=== PATIENT | female | born 1940 | race Two or more races ===

== ENCOUNTER → 2024-05-04 | Outpatient (CLI) | payer MEDICARE, BC, MEDICAID, SELFPAY ==
[2024-05-04 11:39] LABS: Basophils % (Auto) 1 % (0-2.5); Eosinophils # (Auto) 0.3 Thou/mm3 (0.0-0.5); Eosinophils % (Auto) 4 % (0-10); Hematocrit 31.1 % (36.0-46.0); Hemoglobin 10.4 g/dL (12.0-16.0); Immature Granulocytes % (Auto) 0 % (0-0); Immature Granulocytes Auto 0.03 Thou/mm3 (0.00-0.00); Lymphocytes # (Auto) 1.5 Thou/mm3 (1.0-4.8); Lymphocytes % (Auto) 18 % (10-50); Mean Corpuscular HGB Conc 33.4 g/dl (31.0-37.0); Mean Corpuscular Hemoglobin 32.5 pg (25.0-35.0); Mean Corpuscular Volume 97 fL (80-100); Monocytes # (Auto) 0.7 Thou/mm3 (0.0-0.8); Monocytes % (Auto) 9 % (0-12); Neutrophils # (Auto) 5.6 Thou/mm3 (1.8-7.7); Neutrophils % (Auto) 68 % (37-80); Nucleated Red Blood Cell % 0 /100 WBC (0); Platelet Count 220 Thou/mm3 (140-440); White Blood Count 8.1 Thou/mm3 (3.6-11.0)
[2024-05-04 11:58] LABS: Albumin, Serum 3.9 gm/dL (3.4-4.8); Anion Gap 9 (7-16); BUN/Creatinine Ratio 19 Ratio (12-20); Blood Urea Nitrogen 19 mg/dL (9-23); Calcium (Corrected) 9.1 mg/dL (8.5-10.1); Carbon Dioxide 27.3 mMol/L (20.0-31.0); Chloride 107 mMol/L (98-107); Glucose 105 mg/dL (74-106); Osmolality,Calculated 287 (275-295); Phosphorous 3.6 mg/dL (2.4-5.1); Potassium 4.1 mMol/L (3.4-5.1); Sodium 143 mMol/L (136-145); eGFR 55 See Note
== END | disposition home or self-care (01) ==
LOC: COPL 10:45
PROVIDERS: PCP Family Medicine; Referring Provider Internal Medicine; Visit Provider Internal Medicine
DX: N18.31 Chronic kidney disease, stage 3a (principal); D63.1 Anemia in chronic kidney disease; N17.0 Acute kidney failure with tubular necrosis; I50.9 Heart failure, unspecified; I25.10 Atherosclerotic heart disease of native coronary artery without angina pectoris; E87.6 Hypokalemia; E55.9 Vitamin D deficiency, unspecified
CPT/HCPCS: 36415; 80069; 85025

== ENCOUNTER → 2024-08-24 | Outpatient (CLI) | payer MEDICARE, BC, MEDICAID, SELFPAY ==
[2024-08-24 10:25] LABS: Basophils % (Auto) 1 % (0-2.5); Eosinophils # (Auto) 0.3 Thou/mm3 (0.0-0.5); Eosinophils % (Auto) 5 % (0-10); Hematocrit 32.8 % (36.0-46.0); Immature Granulocytes % (Auto) 0 % (0-0); Immature Granulocytes Auto 0.01 Thou/mm3 (0.00-0.00); Lymphocytes # (Auto) 1.4 Thou/mm3 (1.0-4.8); Lymphocytes % (Auto) 22 % (10-50); Mean Corpuscular HGB Conc 33.5 g/dl (31.0-37.0); Mean Corpuscular Hemoglobin 32.4 pg (25.0-35.0); Mean Corpuscular Volume 97 fL (80-100); Monocytes # (Auto) 0.5 Thou/mm3 (0.0-0.8); Monocytes % (Auto) 8 % (0-12); Neutrophils # (Auto) 4.1 Thou/mm3 (1.8-7.7); Neutrophils % (Auto) 64 % (37-80); Nucleated Red Blood Cell % 0 /100 WBC (0); Platelet Count 214 Thou/mm3 (140-440); RDW Standard Deviation 50.3 fL (36.4-46.3); Red Blood Count 3.39 Miln/mm3 (4.00-5.20); White Blood Count 6.4 Thou/mm3 (3.6-11.0)
[2024-08-24 10:36] LABS: Glucose Estimated Average 137 mg/dL (80-131); Hemoglobin A1C 6.4 % Hgb (4.8-6.0)
[2024-08-24 10:44] LABS: Alanine Aminotransferase 17 U/L (10-49); Albumin, Serum 3.9 gm/dL (3.4-4.8); Albumin/Globulin Ratio 1.5 (1.2-2.2); Alkaline Phosphatase 115 U/L (46-116); Anion Gap 7 (7-16); Aspartate Amino Transferase 22 U/L (0-34); BUN/Creatinine Ratio 22 Ratio (12-20); Bilirubin,Total 0.5 mg/dL (0.3-1.2); Blood Urea Nitrogen 22 mg/dL (9-23); Calcium 9.1 mg/dL (8.3-10.6); Calcium (Corrected) 9.2 mg/dL (8.5-10.1); Carbon Dioxide 25.6 mMol/L (20.0-31.0); Cardiac Risk Estimate 2.1 RATIO (3.7-5.6); Chloride 111 mMol/L (98-107); Cholesterol 115 mg/dL (132-200); Globulin 2.6 gm/dL (2.3-3.5); Glucose 115 mg/dL (74-106); HDL Cholesterol 54 mg/dL (40-60); LDL Cholesterol,Calculated 48 mg/dL (0-130); Osmolality,Calculated 291 (275-295); Phosphorous 3.5 mg/dL (2.4-5.1); Potassium 4.3 mMol/L (3.4-5.1); Sodium 144 mMol/L (136-145); Total Protein 6.5 gm/dL (5.7-8.2); Triglycerides 66 mg/dL (30-150); eGFR 55 See Note
[2024-08-24 10:47] LABS: Vitamin D 25 Hydroxy Total 58.6 ng/mL (7.3-40.2)
[2024-08-24 10:48] LABS: Ferritin 613 ng/mL (7.3-270.7); Iron 98 mcg/dL (50-170); Percent Iron Saturation 44 % (20-55); Total Iron Binding Capacity 220 mcg/dL (250-425); Unsaturated Iron Binding 122 (225-295)
== END | disposition home or self-care (01) ==
PROVIDERS: PCP Physician Assistant; Referring Provider Internal Medicine; Visit Provider Internal Medicine
DX: I13.0 Hypertensive heart and chronic kidney disease with heart failure and stage 1 through stage 4 chronic kidney disease, or unspecified chronic kidney disease (principal); N18.31 Chronic kidney disease, stage 3a; D63.1 Anemia in chronic kidney disease; I50.9 Heart failure, unspecified; N17.0 Acute kidney failure with tubular necrosis; I25.10 Atherosclerotic heart disease of native coronary artery without angina pectoris; E87.6 Hypokalemia; E55.9 Vitamin D deficiency, unspecified; E78.5 Hyperlipidemia, unspecified; D50.9 Iron deficiency anemia, unspecified; R73.01 Impaired fasting glucose
CPT/HCPCS: 36415; 80053; 80061; 82306; 82728; 83036; 83540; 83550; 84100; 85025

== ENCOUNTER → 2024-11-29 | Outpatient (CLI) | payer MEDICARE, BC, MEDICAID, SELFPAY ==
[2024-11-29 10:51] LABS: Basophils # (Auto) 0.1 Thou/mm3 (0.0-0.2); Basophils % (Auto) 1 % (0-2.5); Eosinophils # (Auto) 0.3 Thou/mm3 (0.0-0.5); Eosinophils % (Auto) 4 % (0-10); Hematocrit 31.3 % (36.0-46.0); Hemoglobin 10.2 g/dL (12.0-16.0); Immature Granulocytes Auto 0.01 Thou/mm3 (0.00-0.00); Lymphocytes # (Auto) 1.2 Thou/mm3 (1.0-4.8); Lymphocytes % (Auto) 21 % (10-50); Mean Corpuscular HGB Conc 32.6 g/dl (31.0-37.0); Mean Corpuscular Hemoglobin 32.4 pg (25.0-35.0); Mean Corpuscular Volume 99 fL (80-100); Monocytes # (Auto) 0.4 Thou/mm3 (0.0-0.8); Monocytes % (Auto) 8 % (0-12); Neutrophils # (Auto) 3.9 Thou/mm3 (1.8-7.7); Neutrophils % (Auto) 66 % (37-80); Nucleated Red Blood Cell # 0.00 Thou/mm3 (0.00-0.00); Nucleated Red Blood Cell % 0 /100 WBC (0); Platelet Count 187 Thou/mm3 (140-440); RDW Standard Deviation 49.9 fL (36.4-46.3); Red Blood Count 3.15 Miln/mm3 (4.00-5.20); White Blood Count 5.9 Thou/mm3 (3.6-11.0)
[2024-11-29 11:15] LABS: Alanine Aminotransferase 15 U/L (10-49); Albumin, Serum 3.9 gm/dL (3.4-4.8); Albumin/Globulin Ratio 1.6 (1.2-2.2); Alkaline Phosphatase 102 U/L (46-116); Anion Gap 10 (7-16); Aspartate Amino Transferase 21 U/L (0-34); BUN/Creatinine Ratio 18 Ratio (12-20); Bilirubin,Direct 0.2 mg/dL (0.0-0.3); Bilirubin,Total 0.6 mg/dL (0.3-1.2); Blood Urea Nitrogen 18 mg/dL (9-23); Calcium 9.0 mg/dL (8.3-10.6); Calcium (Corrected) 9.1 mg/dL (8.5-10.1); Carbon Dioxide 28.5 mMol/L (20.0-31.0); Cardiac Risk Estimate 2.0 RATIO (3.7-5.6); Chloride 110 mMol/L (98-107); Cholesterol 100 mg/dL (132-200); Creatinine (Component) 1.0 mg/dL (0.6-1.3); Globulin 2.4 gm/dL (2.3-3.5); Glucose 105 mg/dL (74-106); HDL Cholesterol 50 mg/dL (40-60); LDL Cholesterol,Calculated 37 mg/dL (0-130); Osmolality,Calculated 296 (275-295); Phosphorous 3.4 mg/dL (2.4-5.1); Potassium 3.8 mMol/L (3.4-5.1); Sodium 148 mMol/L (136-145); Total Protein 6.3 gm/dL (5.7-8.2); Triglycerides 67 mg/dL (30-150); eGFR 55 See Note
[2024-11-29 11:19] LABS: Glucose Estimated Average 120 mg/dL (80-131); Hemoglobin A1C 5.8 % Hgb (4.8-6.0)
== END | disposition home or self-care (01) ==
LOC: COPL 09:18
PROVIDERS: PCP Family Medicine; Referring Provider Internal Medicine Cardiovascular Disease; Visit Provider Internal Medicine
DX: E11.22 Type 2 diabetes mellitus with diabetic chronic kidney disease (principal); N18.31 Chronic kidney disease, stage 3a; D63.1 Anemia in chronic kidney disease; I50.9 Heart failure, unspecified; I25.10 Atherosclerotic heart disease of native coronary artery without angina pectoris; E87.6 Hypokalemia; E55.9 Vitamin D deficiency, unspecified; I25.118 Atherosclerotic heart disease of native coronary artery with other forms of angina pectoris; E78.00 Pure hypercholesterolemia, unspecified; E78.2 Mixed hyperlipidemia; R79.9 Abnormal finding of blood chemistry, unspecified; R53.82 Chronic fatigue, unspecified
CPT/HCPCS: 36415; 80053; 80061; 80076; 82248; 83036; 84100; 85025

== ENCOUNTER 2024-12-25 13:18 | Inpatient (IN) | payer MEDICARE, BC, MEDICAID, SELFPAY ==
[2024-12-25] VITALS (8 sets, daily range): BP systolic 149–174; BP diastolic 63–85; PULSE 68–105; RESP 14–18; TEMP 36.4–36.9; O2SAT 97–100; BMI 27.1
--- NOTE | 2024-12-25 13:43 | EKG_ITS ---
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1940 Requested By: Marko Riley Order Number: [id number] Reading MD: Marko Riley Measurements Intervals [place] Rate: 93 P: 101 KS: 182 QRS: 25 QRSD: 119 T: 177 QT: 370 QTc: 461 Interpretive Statements SINUS RHYTHM WITH OCCASIONAL VENTRICULAR PREMATURE COMPLEXES ANTEROSEPTAL MYOCARDIAL INFARCTION , PROBABLY OLD [40+ ms Q WAVE IN V1-V4] MODERATE T-WAVE ABNORMALITY, CONSIDER LATERAL ISCHEMIA [-0.1+ mV T-WAVE IN I/aVL/V5/V6] Compared to ECG 08/12/2017 09:55:06 Myocardial infarct finding now present T-wave abnormality now present Possible ischemia now present Atrial fibrillation no longer present Aberrant conduction of supraventricular beat(s) no longer present Left bundle-branch block no longer present /store/S0/[id number].pdf
--- NOTE | 2024-12-25 13:43 | XR_ITS ---
Examination: CT brain head without contrast. 2-D sagittal coronal reconstructions Date and time of exam:December 25, 2024, 1431 hrs. Indications: Generalized dizziness today CTDI: vol (mGy):48.6. DLP: (mGycm):930 Technique: Multiple CT axial sections of the brain have been obtained, 5 mm slice thickness. Contrast has not been administered. 2-D sagittal, coronal reconstructions have been obtained Low dose protocols were performed. One or more of the following dose reduction techniques were used; automated exposure control, adjustment of the mA and/or KV according to patient size, use of iterative reconstruction technique. Findings: No significant ventricular enlargement. Frontal atrophy Intra-axial or extra-axial hemorrhage density is not seen. No mass effect or midline shift Basal cisterns are not remarkable. Fourth ventricle is midline. Cranial vault intact. Impression: Negative for acute hemorrhage, mass effect or midline shift Advise clinical correlation and follow-up accordingly
--- NOTE | 2024-12-25 13:43 | XR_ITS ---
Examination: AP chest single view Technique: AP portable semiupright chest single view Date and time: December 25, 2024, 1355 hrs. Comparison April 10, 2018 Indications: Coughing beginning 3 days ago. Findings: Normal heart size. Mild prominence pulmonary vasculature. Cardiac leads satisfactory position. No lobar pneumonia or pulmonary edema. Impression: No lobar pneumonia or pulmonary edema.
--- NOTE | 2024-12-25 14:00 | PD.EDDIZZY ---
ED Dizzyness RME/HPI General Chief Complaint: Dizziness Stated Complaint: DIZZINESS Time Seen by Provider: 12/25/24 13:35 Arrival date/time: 12/25/24 13:18 Limitations: no limitations RME / HPI RME / HPI Narrative: 84 year old female with history of CHF, hypertension, s/p pacemaker placement, diabetes presented to the ED BIBA from home for evaluation of dizziness today. States symptoms began while getting ready and lasting ~ 10 seconds. Followed by malaise. Denies any fevers, chills, chest pain, cough, shortness of breath, abdominal pain, nausea, vomiting, or urinary symptoms. Denies any changes to memory, focal weakness, or change in speech. Related Data Home Medications ?Medication ?Instructions ?Recorded ?Confirmed aspirin 81 mg tablet,delayed 81 mg PO QDAY 04/10/18 12/22/23 release (Aspir-Low) atorvastatin 80 mg tablet 80 mg PO QDAY 04/10/18 12/22/23 carvedilol 6.25 mg tablet 6.25 mg PO BID 04/10/18 12/22/23 glipizide 2.5 mg tablet, extended 2.5 mg PO QDAY 04/10/18 12/22/23 release 24 hr sacubitril 24 mg-valsartan 26 mg 1 tab PO BID 04/10/18 12/22/23 tablet (Entresto) ticagrelor 90 mg tablet (Brilinta) 90 mg PO BID 04/10/18 12/22/23 Allergies Allergy/AdvReac Type Severity Reaction Status Date / Time No Known Allergies Allergy Verified 12/22/23 09:48 Review of Systems Review of Systems Systems Reviewed: All systems reviewed, normal except as documented Past Medical History Past Medical History CARDIAC: Positive Cardiac Disorders (pacemaker left upper chest), Myocardial Infarction (04/2018), Atrial Fibrillation (hx), Congestive Heart Failure, Congenital Heart Disease and Hypertension ENT: Positive Cataracts ENDOCRINE: Positive Endocrine Disorders and Diabetes Mellitus Type 2 HEMATOLOGIC: Positive Blood Disorders (LOW MAGNESIUM) Surgical History SURGICAL: Positive Cardiac Surgery and Pacemaker Social History SMOKING STATUS: Never smoker ED Exam General Limitations: Present no limitations General appearance: Present alert, in no apparent distress and other (appears ill, making poor eye contact) Head Head exam: Present atraumatic Eye Eye exam: Present normal appearance, PERRL and EOMI; Absent nystagmus ENT ENT exam: Present normal exam, normal oropharynx and mucous membranes moist Neck Neck exam: Present normal inspection, full ROM, trachea midline and other (Carotids +1 ) Chest Chest inspection: Present normal inspection and symmetric chest wall rise Respiratory Respiratory exam: Present normal lung sounds bilaterally Cardiovascular Cardiovascular exam: Present regular rate, normal rhythm and normal heart sounds Abdominal Exam Abdominal exam: Present soft and normal bowel sounds Extremities Exam Extremities exam: Present normal inspection and full ROM Back Exam Back exam: Present normal inspection and full ROM Neurological Exam Neurological exam: Present alert, oriented X3 and CN II-XII intact Psychiatric Psychiatric exam: Present normal affect and normal mood Skin Skin exam: Present warm, dry, intact and normal color Course Quality Measures none Orders Category Date Time Status Bedside COVID-19 Antigen Test NOW Care 12/25/24 18:08 Active COVID-19 Screening Questionnaire NOW Care 12/25/24 18:04 Active Thermal Surfacing Machine Operator NOW Care 12/25/24 13:43 Active Continuous Pulse Oximetry NOW Care 12/25/24 13:43 Completed Decision to Admit X1 Care 12/25/24 18:04 Completed EKG (ED ONLY) *Do not use* NOW Care 12/25/24 13:43 Completed Insert IV NOW Care 12/25/24 13:43 Active Consult to Cardiology Stat Cons 12/25/24 18:[address] head/brain wo con Stat Exams 12/25/24 13:43 Completed EKG (ED Only) Stat Exams 12/25/24 13:43 Draft XR chest 1V portable Stat Exams 12/25/24 13:43 Completed CBC Stat Lab 12/25/24 14:18 Completed Comprehensive Metabolic Panel Stat Lab 12/25/24 14:18 Completed Partial Thromboplastin Time Stat Lab 12/25/24 14:18 Completed Prothrombin Time with INR Stat Lab 12/25/24 14:18 Completed Troponin I Stat Lab 12/25/24 14:18 Completed Troponin I Stat Lab 12/25/24 16:38 Completed Urinalysis Stat Lab 12/25/24 14:58 Completed Aspirin Med 12/25/24 17:35 Discontinued 325 mg PO X1 ONE Meclizine HCl [Antivert] Med 12/25/24 13:43 Discontinued 25 mg PO X1 ONE Sodium Chloride 0.9% 1000 ml [Ns] 1,000 ml Med 12/25/24 13:43 Discontinued IV 999 mls/hr Vital Signs Vital signs: Vital Signs Temperature 98.5 F 12/25/24 13:27 Pulse Rate 100 12/25/24 13:27 Respiratory Rate 18 12/25/24 13:27 Blood Pressure 149/70 H 12/25/24 13:27 Pulse Oximetry (%) 98 12/25/24 13:27 Oxygen Delivery Method Room Air 12/25/24 13:27 Pulse ox is 98% on room air which is adequate. Dizziness MDM Narrative MDM Narrative:: Carlota Israel am scribing for and in the presence of Dr. Nelson. Patient data External records reviewed:: [facility] previous records (I reviewed ED visit on 04/10/2018 ) and EMS form Clinical information provided by:: patient and EMS Social determinants that could affect healthcare access:: none Patient has the following chronic illnesses:: CHF, hypertension, s/p pacemaker placement, diabetes How is presenting disease/condition affected by chronic disease/condition?: exacerbated by Evaluation data The following diagnostics were reviewed and interpreted by me:: lab results, radiology exam(s) and EKG tracing(s) (12/25/2024 @ 13:54. Sinus rhythm with occasional PVCs, rate 93, changes to anterior septal leads, no STEMI. ) Lab and/or radiology exams considered but not ordered:: None Interpretation Summary: Ordering Physician: Marko Nelson MD Date of Service: 12/25/24 Procedure(s): XR chest 1V portable Accession Number(s): [id number] cc: Marok Nelson MD; Patrick Sr MD~ Examination: AP chest single view Technique: AP portable semiupright chest single view Date and time: December 25, 2024, 1355 hrs. Comparison April 10, 2018 Indications: Coughing beginning 3 days ago. Findings: Normal heart size. Mild prominence pulmonary vasculature. Cardiac leads satisfactory position. No lobar pneumonia or pulmonary edema. Impression: No lobar pneumonia or pulmonary edema. Dictated By: Patrick Sr MD Signed By: <Electronically signed by Patrick Sr MD in OV> 12/25/24 1405 Ordering Physician: Marko Nelson MD Date of Service: 12/25/24 Procedure(s): CT head/brain wo con Accession Number(s): [id number] cc: Marko Nelson MD; Patrick Sr MD; Ryan Martinez MD~ Examination: CT brain head without contrast. 2-D sagittal coronal reconstructions Date and time of exam:December 25, 2024, 1431 hrs. Indications: Generalized dizziness today CTDI: vol (mGy):48.6. DLP: (mGycm):930 Technique: Multiple CT axial sections of the brain have been obtained, 5 mm slice thickness. Contrast has not been administered. 2-D sagittal, coronal reconstructions have been obtained Low dose protocols were performed. One or more of the following dose reduction techniques were used; automated exposure control, adjustment of the mA and/or KV according to patient size, use of iterative reconstruction technique. Findings: No significant ventricular enlargement. Frontal atrophy Intra-axial or extra-axial hemorrhage density is not seen. No mass effect or midline shift Basal cisterns are not remarkable. Fourth ventricle is midline. Cranial vault intact. Impression: Negative for acute hemorrhage, mass effect or midline shift Advise clinical correlation and follow-up accordingly Dictated By: Patrick Sr MD Signed By: <Electronically signed by Patrick Sr MD in OV> 12/25/24 1542 Medications / Prescriptions Medications or Prescriptions considered but not ordered:: None Medication administrations:: Medication Administration History Discontinued Medications Aspirin (Aspirin 325 Mg Tablet) 325 mg PO X1 ONE Stop: 12/25/24 17:36 Last Admin: 12/25/24 17:52 Dose: 325 mg Documented By: DB Sodium Chloride (Ns) 1,000 mls @ 999 mls/hr IV .Q1H1M ONE Stop: 12/25/24 14:43 Last Infusion: 12/25/24 15:14 Dose: Infused Documented By: Admin: 12/25/24 14:13 Dose: 999 mls/hr Documented By: EF Meclizine HCl (Meclizine Hcl 25 Mg Tablet) 25 mg PO X1 ONE Stop: 12/25/24 13:44 Last Admin: 12/25/24 14:13 Dose: 25 mg Documented By: EF See above Consultations Consultation(s) initiated? (list below): Yes Consultation #1 (Physician, Specialty, Details): I spoke with sales property manager Dr. Carrillo. Discussed patients PMHx, HPI, ED course, exam findings, labs, and radiology results. He agrees to consult. Time: 18:00 Consultation #2 (Physician, Specialty, Details): I spoke with residents working with hospitalis Dr. Segal. Discussed patients PMHx, HPI, ED course, exam findings, labs, and radiology results. The hospitalist agree to accept the patient for admission. Time: 18:03 Diagnosis Dizziness Differential Diagnosis: adverse reaction to drug, benign paroxysmal positional vertigo, orthostatic hypotension, cerebrovascular accident and transient cerebral ischemia Most likely diagnosis given after review of the tests above:: Elevated troponin Subendocardial mi Admission Indicated Admission indicated?: indicated Admission Request Was there a request for admission?: Yes Admission Attestation Admission request attestation: Discussed case with [] from Hospitalist service regarding admission. Discussed patients ED course, exam findings, labs, and radiology results. The Hospitalist [agrees,declines] to accept the patient for admission. Disposition Plan Disposition Plan: Admit Critical Care Time Critical Care Time Critical Care Time: Yes Total Critical Care Time (min.): 45 Attestation: The high probability of sudden, clinically significant deterioration in the patient's condition required the highest level of my preparedness to intervene urgently. The services I provided to this patient were to treat and/or prevent clinically significant deterioration. Services included the following: chart data review, reviewing nursing notes and/or old charts, documentation time, contact center consultant collaboration regarding findings and treatment options, medication orders and management, direct patient care, vital sign assessments and ordering, interpreting and reviewing diagnostic studies and lab tests. Aggregate critical care time includes only time during which I was engaged in work directly related to the patient's care, as described above, whether at bedside or elsewhere in the Emergency Department. It did not include time spent performing other reported procedures or the services of residents, students, nurses or physician assistants. Discharge Plan Plan Patient Disposition: Admit Acute Care w/in Hospital Prescriptions/Referrals Prescriptions/Med Rec: No Action atorvastatin 80 mg Tablet 80 mg PO QDAY carvedilol 6.25 mg Tablet 6.25 mg PO BID aspirin [Aspir-Low] 81 mg Tablet,Delayed Release (Dr/Ec) 81 mg PO QDAY glipizide 2.5 mg Tablet Extended Release 24 Hr 2.5 mg PO QDAY Brilinta 90 mg Tablet 90 mg PO BID Entresto 24-26 mg Tablet 1 tab PO BID Referrals: Ryan Martinez MD [Primary Care Provider] - In 1 week Problem List Clinical Impression: Acute MD, subendocardial Patient/Caregiver Discharge Instructions Print Language: Kiswahili Stand Alone Forms: Nadine Award Info., Patient Portal Info Letter
[2024-12-25] MEDS: SODIUM CHLORIDE 0.9% 1000 ML 1,000 ML 999 ML IV (14:13)
[2024-12-25] MEDS: MECLIZINE HCL 25 MG TABLET PO (14:13)
[2024-12-25 14:39] LABS: Basophils # (Auto) 0.0 Thou/mm3 (0.0-0.2); Basophils % (Auto) 1 % (0-2.5); Eosinophils # (Auto) 0.2 Thou/mm3 (0.0-0.5); Eosinophils % (Auto) 2 % (0-10); Hematocrit 33.6 % (36.0-46.0); Hemoglobin 11.1 g/dL (12.0-16.0); Immature Granulocytes Auto 0.02 Thou/mm3 (0.00-0.00); Lymphocytes # (Auto) 1.2 Thou/mm3 (1.0-4.8); Lymphocytes % (Auto) 13 % (10-50); Mean Corpuscular HGB Conc 33.0 g/dl (31.0-37.0); Mean Corpuscular Hemoglobin 32.4 pg (25.0-35.0); Mean Corpuscular Volume 98 fL (80-100); Monocytes # (Auto) 0.5 Thou/mm3 (0.0-0.8); Monocytes % (Auto) 5 % (0-12); Neutrophils # (Auto) 6.9 Thou/mm3 (1.8-7.7); Neutrophils % (Auto) 79 % (37-80); Nucleated Red Blood Cell # 0.00 Thou/mm3 (0.00-0.00); Nucleated Red Blood Cell % 0 /100 WBC (0); Platelet Count 205 Thou/mm3 (140-440); RDW Standard Deviation 50.9 fL (36.4-46.3); Red Blood Count 3.43 Miln/mm3 (4.00-5.20); White Blood Count 8.8 Thou/mm3 (3.6-11.0)
[2024-12-25 14:51] LABS: INR 1.0 (0.9-1.3); Partial Thromboplastin Time 22.2 Seconds (22.0-36.0); Prothrombin Time 11.1 Seconds (9.0-12.2)
[2024-12-25 15:03] LABS: Collection Type, Urine Clean Catch
[2024-12-25 15:12] LABS: Alanine Aminotransferase 10 U/L (10-49); Albumin, Serum 4.1 gm/dL (3.4-4.8); Albumin/Globulin Ratio 1.7 (1.2-2.2); Alkaline Phosphatase 112 U/L (46-116); Anion Gap 10 (7-16); Aspartate Amino Transferase 21 U/L (0-34); BUN/Creatinine Ratio 15 Ratio (12-20); Bilirubin,Total 0.6 mg/dL (0.3-1.2); Blood Urea Nitrogen 15 mg/dL (9-23); Calcium 8.7 mg/dL (8.3-10.6); Calcium (Corrected) 8.7 mg/dL (8.5-10.1); Carbon Dioxide 23.4 mMol/L (20.0-31.0); Chloride 107 mMol/L (98-107); Creatinine (Component) 1.0 mg/dL (0.6-1.3); Estimated Creatinine Clearance 37.0 mL/min (>60); Globulin 2.4 gm/dL (2.3-3.5); Glucose 190 mg/dL (74-106); Osmolality,Calculated 285 (275-295); Potassium 3.6 mMol/L (3.4-5.1); Sodium 140 mMol/L (136-145); Total Protein 6.5 gm/dL (5.7-8.2); eGFR 55 See Note
[2024-12-25 15:22] LABS: Troponin I 0.114 ng/mL (0.0-0.045)
[2024-12-25 15:28] LABS: Bilirubin,Urine Negative (Negative); Blood,Urine 1+ (Negative); Clarity,Urine Turbid (Clear/Hazy); Color,Urine Lt-Yellow (Lt Yel-Yel); Glucose, Urine Negative (Negative); Ketones,Urine Negative (Negative); Leukocyte Esterase,Urine Positive (Negative); Nitrite,Urine Positive (Negative); PH,Urine 6.0 (5.0-7.0); Protein,Urine Negative (Neg - Trace); RBC,Urine 16 /hpf (0-3); Specific Gravity,Urine 1.010 (1.001-1.035); Squamous Epithelial Cell,Urine 3 /hpf (0-5); Urobilinogen,Urine Negative mg/dL (0.0-1.0); WBC,Urine 603 /hpf (0-5)
[2024-12-25 17:22] LABS: Troponin I 0.272 ng/mL (0.0-0.045)
--- NOTE | 2024-12-25 18:14 | PD.RESEVENT ---
Documentation for date of: 12/25/24 Event Note Event Note: Patient is 84 years old female with past medical history of A-fib, CAD, CHF s/p pacemaker, DM type II, presented to the ED complaining of dizziness. EKG showed ST segment changes concerning for ischemia. Her troponin was elevated at 0.272. ED physician consulted cardiology who recommended admission for further evaluation. Call was received after hours and will be signed out to scene shifter team for admission. Plan of care discussed with attending Dr. Segal. Gibran Grey MD, PGY 3. Disclaimer: This note was dictated by speech recognition. Minor errors in trucking contractor may be present due to voice recognition software.
--- NOTE | 2024-12-25 18:37 | PC.CC ---
Patient is a 84 year-old female who presents to the hospital for dizziness. SUPERVISOR CYTOLOGYKathryn made [id number] contact with patient. ASW introduced self, role, and reason for visit.?Patient appeared alert and oriented to self, location, and situation. SUPERVISOR CYTOLOGY discussed limits of confidentialty. At bedside was patient's daughter, Moni Cai whom patient provided verbal consent to remain in the room during assessment.?Patient was pleasant and engaged in initial assessment. Patient reports that currently she is living with her son Duglas and his , Renetta Hammond. However, upon discharge she will be going to stay with her daughter, Moni. Patient's next of kin is her son, Duglas Hammond. At home patient is able to ambulate independently and complete her own ADLs. Patient does not require any DME. Patient receives primary care with Ryan Martinez and uses [facility] on [address]. Upon discharge patient will be going to stay with her daughter, Moni. rehab services aide to follow up with any discharge needs.
--- NOTE | 2024-12-25 19:22 | EKG_ITS ---
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
[2024-12-25 19:46] LABS: Magnesium 1.4 mg/dL (1.6-2.6); Phosphorous 2.8 mg/dL (2.4-5.1)
[2024-12-25 21:05] LABS: Troponin I 0.204 ng/mL (0.0-0.045)
--- NOTE | 2024-12-25 21:11 | ESHP_ITS ---
Documentation for date of: 12/25/24 [facility] History of Present Illness History of present illness: 84-year-old female with a history of CHF, atrial fibrillation (s/p pacemaker), myocardial infarction (2018), hypertension, and type 2 diabetes mellitus presented to the ED from home after an episode of lightheadedness and near- syncope. Symptoms began around 11:45 AM while she was returning from breakfast with her niece. She described the episode as a sensation of dizziness and feeling like she would faint, accompanied by an unusual internal cracking sound she perceived in her chest. She did not lose consciousness, fall, or hit her head. She denied chest pain, palpitations, focal neurologic deficits, nausea, vomiting, or shortness of breath. She reports similar but less intense symptoms occurring a few years ago that resolved on their own. She ambulated independently prior to this event, with stable but reduced exertional capacity due to CHF. She has mild hip pain with initial ambulation, s/p left hip ORIF over a year ago, but no recent trauma or worsening pain. Appetite is good, no recent medication changes, and she denies fevers, chills, urinary, or GI complaints. She was hemodynamically stable upon arrival to the ED. ED Course: EKG: Sinus rhythm with occasional PVCs, T-wave abnormalities concerning for lateral ischemia, and old anteroseptal KS Troponin 0.11 --> 0.272 --> 0.[address]: Negative for acute process Chest X-ray: No pulmonary edema or consolidation UA: +LE, +blood, WBCs 603, RBCs 16, no bacteria, positive nitrites Given: * Aspirin 325 mg * Meclizine 25 mg * 1L NS IV fluid bolus (now discontinued) ROS: * Constitutional: No fever, chills, or weight loss. Mild fatigue. * Cardiovascular: Denies chest pain or palpitations. * Pulmonary: No shortness of breath, cough, or wheezing. * GI: No nausea, vomiting, abdominal pain, diarrhea, or constipation. * : No dysuria, urgency, or frequency. * Neuro: Denies weakness, numbness, speech changes, or visual disturbances. * MSK: Mild left hip pain with movement, chronic since ORIF. * Skin: No rashes, wounds, or breakdown. * Psych: No anxiety or mood changes. PMH: CHF, A-fib (s/p pacemaker), KS (2018), HTN, DM2, left hip fracture s/p ORIF (>1 year ago) Allergies: NKDA Medications: To be reconciled on admission (likely on aspirin, antihypertensives, antidiabetics; unclear if on anticoagulation) Family Hx: Non-contributory Social Hx: Lives at home with family. Never smoker. Independent with ADLs. Surgical Hx: Pacemaker (L chest), ORIF L hip Exam Vital Signs Temp Pulse Resp BP Pulse Ox O2 Del Method 98.2 F 77 16 174/82 H 100 Room Air 12/25/24 19:23 12/25/24 19:23 12/25/24 19:23 12/25/24 19:23 12/25/24 19:23 12/25/24 19:23 Narrative Exam General: Elderly female, alert and pleasant, no acute distress. HEENT: PERRLA, moist mucous membranes, no lesions. Neck: No JVD or carotid bruits. Cardiac: Regular rhythm, normal S1/S2, occasional PVCs heard, no murmurs. Lungs: Clear to auscultation bilaterally. Abdomen: Soft, non-tender, no masses or organomegaly. Extremities: No edema. L hip nontender to palpation; mild pain with initial movement. Neuro: AOx3, CN II?XII intact, no focal deficits. Skin: Intact, no lesions or ecchymosis. Psych: Cooperative, appropriate affect. Results: Labs 12/25/24 14:18 12/25/24 14:18 Labs: Short CBC 12/25/24 Range/Units 14:18 WBC 8.8 (3.6-11.0) Thou/mm3 Hgb 11.1 L (12.0-16.0) g/dL Hct 33.6 L (36.0-46.0) % Plt Count 205 (140-440) Thou/mm3 BMP 12/25/24 14:18 Sodium 140 Potassium 3.6 Chloride 107 Carbon Dioxide 23.4 BUN 15 Creatinine 1.0 Glucose 190 H Calcium 8.7 Cardiac Enzymes 12/25/24 12/25/24 12/25/24 Range/Units 14:18 16:38 20:09 Troponin I 0.114 H* 0.272 H* 0.204 H* (0.0-0.045) ng/mL Liver Function 12/25/24 Range/Units 14:18 Total Bilirubin 0.6 (0.3-1.2) mg/dL AST 21 (0-34) U/L ALT 10 (10-49) U/L Alkaline Phosphatase 112 (46-116) U/L Albumin 4.1 (3.4-4.8) gm/dL Urine 12/25/24 Range/Units 14:58 Urine Color Lt-Yellow (Lt Yel-Yel) Urine Clarity Turbid A (Clear/Hazy) Urine pH 6.0 (5.0-7.0) Ur Specific [place] 1.010 (1.001-1.035) Urine Protein Negative (Neg - Trace) Urine Glucose (UA) Negative (Negative) Quality Measures Quality Measures VTE prophylaxis Advance care planning discussed with:: patient and child Medications Home Medications and Allergies Home Medications ?Medication ?Instructions ?Recorded ?Confirmed ?Type aspirin 81 mg tablet,delayed 81 mg PO QDAY 04/10/18 History release (Aspir-Low) atorvastatin 80 mg tablet 80 mg PO QDAY 04/10/1812/25 History carvedilol 6.25 mg tablet 6.25 mg PO BID 04/10/1808/16 History glipizide 2.5 mg tablet, extended 2.5 mg PO QDAY 04/1012/25/24 History release 24 hr sacubitril 24 mg-valsartan 26 mg 1 tab PO BID 04/10/18 12/25/24 History tablet (Entresto) ticagrelor 90 mg tablet (Brilinta) 90 mg PO BID 12/25/24 History amlodipine 5 mg tablet 5 mg PO HS 12/25/24 12/25/24 History cyanocobalamin (vitamin B-12) 500 500 mcg PO QDAY 08/1612/25/24 History mcg tablet (B-12 DOTS) ergocalciferol (vitamin D2) 1,250 1,250 mcg PO .m 08/1612/25/24 History mcg (50,000 unit) capsule ferrous sulfate 325 mg (65 mg 325 mg PO TID 12/25/24 0 12/25/24 History iron) tablet Allergies Allergy/AdvReac Type Severity Reaction Status Date / Time No Known Allergies Allergy Verified 12/22/23 09:48 Visit Medications Enoxaparin Sodium (Enoxaparin Sod Inj 40 Mg/0.4 Ml Syringe) 40 mg SC QDAY JOSE LUIS Stop: 01/09/25 08:59 Discontinued Medications Aspirin (Aspirin 325 Mg Tablet) 325 mg PO X1 ONE Stop: 12/25/24 17:36 Last Admin: 12/25/24 17:52 Dose: 325 mg Sodium Chloride (Ns) 1,000 mls @ 999 mls/hr IV .Q1H1M ONE Stop: 12/25/24 14:43 Last Infusion: 12/25/24 15:14 Dose: Infused Meclizine HCl (Meclizine Hcl 25 Mg Tablet) 25 mg PO X1 ONE Stop: 12/25/24 13:44 Last Admin: 12/25/24 14:13 Dose: 25 mg Assessment & Plan Plan 84-year-old female with history of CHF, A-fib (s/p pacemaker), prior KS, DM2, HTN, and L hip ORIF, presenting with dizziness and elevated troponin. #Presyncope /Dizziness Likely multifactorial presyncope (vasovagal, volume depletion, or arrhythmia- related); no fall or LOC. EKG: Sinus with PVCs, T-wave changes Head CT negative Plan: * Monitor orthostatics and telemetry * Repeat troponin and EKG * Cardiology consult * Maintain euvolemia #NSTEMI (likely Type II) Troponin peaked at 0.272 now down to 0.204, no chest pain or ischemic symptoms; likely Type II KS in setting of brief hypoperfusion. EKG: Old anteroseptal KS, T-wave abnormalities Plan: * Continue aspirin 81 mg * Trend troponin * Consider Echo after cardiology recs #UTI UA with +LE, blood, WBCs; occasional burning sensation Plan: * F/U urine culture * Ceftriaxone 1gm daily #Atrial Fibrillation, s/p Pacemaker History of A-fib, now in sinus; Patient on DAPT Plan: * Review prior ECGs/pacer interrogation * Monitor for recurrence #Congestive Heart Failure (chronic, compensated) No acute decompensation; CXR clear, patient denies dyspnea or orthopnea. Plan: * Continue home CHF regimen once reconciled * Check BNP, review most recent echo #Type 2 Diabetes Mellitus Glucose 190 in ED, no symptoms. Plan: * Patient started on ISS #Hypertension Previously controlled, unclear current meds. Plan: * Resume home meds * Monitor vitals #Chronic Left Hip Pain, s/p ORIF (1+ year ago) No acute changes; mild pain with movement. Plan: * Continue acetaminophen PRN * Encourage ambulation * PT eval if deconditioned Health Maintenance: Disposition: Admit to telemetry due to troponins Feeding: Regular diet Thromboprophylaxis: Enoxaparin 40 mg SQ daily GI prophylaxis: Protonix Code Status: Full ----- Plan discussed with attending physician Dr. Korey Brunner MD PGY-1 Internal Medicine Attending Provider Attestation/Addendum Attending Provider Attestation/Addendum After examination of the patient and review of the clinical data I feel that this patient needs admission to the hospital for further treatment/evaluation. I Angeli Rodriguez MD, attest that I was physically present for ferreira portions of evaluation, and examined patient, labs and imagings and plan of care were discussed with IM residents team, and I agree with the findings and plans documented above.
--- NOTE | 2024-12-25 21:12 | PD.RESCONSUL ---
HPI Data of Consult Patient: new to practice Consult date: 12/25/24 Requesting Physician: Angeli Rodriguez MD Admitting Provider: Angeli Rodriguez MD Attending Provider: Angeli Rodriguez MD Primary Care Provider: Ryan Martinez MD Consult Narrative History of present illness: Patient is an 84-year-old female with a past medical history of CHF status post ICD, history of cardiac arrest, coronary artery disease, A-fib, diabetes mellitus type 2, who presented to the ER with chief complaint of dizziness. Patient reported she felt dizzy when she was returning from breakfast, also felt chest discomfort. The patient felt like she was going to faint, but did not actually lose consciousness or fall, but felt weak on her knees. Of note, patient has a prior history of cardiac arrest and possible STEMI equivalent in 2018, and was transferred out to [facility] for interventional cardiology services. The patient's regular tool room attendant with Dr. Geni Siegel, placed ICD for CHF. In the ED, the patient had initial vitals, 149/70, pulse 100, saturating 98% on room air, afebrile, EKG showed left bundle branch block pattern, CBC unremarkable except slight anemia, noted slight troponin elevation, troponin 0.114 later increased to 0.272. The patient denied any active chest pain or heaviness at the time of evaluation. Head CT negative for acute hemorrhage or mass effect, UA concerning for UTI, patient was given aspirin loading dose 300 mg x 1, and meclizine 25 mg x 1 in the ED. Home medications: Aspirin, Brilinta 60 mg twice daily, Coreg, glipizide, Entresto, amlodipine, atorvastatin 80 mg. Past medical history: CHF status post ICD, history of cardiac arrest, coronary artery disease, A-fib, diabetes mellitus type 2, Surgical history: ICD placement, left hip ORIF Social history: Denies smoking or drinking cc:: cc: Angeli Rodriguez MD Review of Systems Review of Systems Systems Reviewed: All systems reviewed, normal except as documented Past Medical History Past Medical History NEUROLOGIC: Negative Neurological Disorders or Seizures CARDIAC: Positive Cardiac Disorders, Myocardial Infarction, Atrial Fibrillation, Congestive Heart Failure, Congenital Heart Disease and Hypertension RESPIRATORY: Negative Chronic Obstructive Pulmonary Disease (COPD), Smoking, Smoking Cessation Counseling, Tobacco Use or Clubbing GASTROINTESTINAL: Negative Gastrointestinal Disorders GENITOURINARY: Negative Genitourinary Disorders or Renal Disease MUSCULOSKELETAL: Negative Musculoskeletal Disorders ENT: Positive Cataracts ENDOCRINE: Positive Endocrine Disorders; Negative Diabetes Mellitus Type 1 or Diabetes Mellitus Type 2 (per patient no medication taking for this blood levels normal) HEMATOLOGIC: Positive Blood Disorders OTHER HISTORY: Negative Autoimmune Disease, Blood Transfusions or Anesthesia Reactions Family History FAMILY HISTORY: Negative Family Psychiatric Problems, Family Respiratory Disorders, Family Cardiac Disorders, Family Gastrointestinal Problems, Family Genitourinary Problems, Family Endocrine Disorders, Family Reproductive Disorders, Family Musculoskeletal Disorders or Family Cancer Surgical History SURGICAL: Positive Cardiac Surgery and Pacemaker Social History SMOKING STATUS: Never smoker Exam Vital Signs Temp Pulse Resp BP Pulse Ox O2 Del Method 98.2 F 77 16 174/82 H 100 Room Air 12/25/24 19:23 12/25/24 19:23 12/25/24 19:23 12/25/24 19:23 12/25/24 19:23 12/25/24 19:23 Narrative Exam General: Elderly female, alert and pleasant, no acute distress. HEENT: PERRLA, moist mucous membranes, no lesions. Neck: No JVD or carotid bruits. Cardiac: Regular rhythm, normal S1/S2, occasional PVCs heard, no murmurs. Lungs: Clear to auscultation bilaterally. Abdomen: Soft, non-tender, no masses or organomegaly. Extremities: No edema. L hip nontender to palpation; mild pain with initial movement. Neuro: AOx3, CN II?XII intact, no focal deficits. Skin: Intact, no lesions or ecchymosis. Psych: Cooperative, appropriate affect. Results Labs 12/26/24 05:05 12/26/24 05:05 Labs: Short CBC 12/25/24 Range/Units 14:18 WBC 8.8 (3.6-11.0) Thou/mm3 Hgb 11.1 L (12.0-16.0) g/dL Hct 33.6 L (36.0-46.0) % Plt Count 205 (140-440) Thou/mm3 BMP 12/25/24 14:18 Sodium 140 Potassium 3.6 Chloride 107 Carbon Dioxide 23.4 BUN 15 Creatinine 1.0 Glucose 190 H Calcium 8.7 Cardiac Enzymes 12/25/24 12/25/24 12/25/24 Range/Units 14:18 16:38 20:09 Troponin I 0.114 H* 0.272 H* 0.204 H* (0.0-0.045) ng/mL Liver Function 12/25/24 Range/Units 14:18 Total Bilirubin 0.6 (0.3-1.2) mg/dL AST 21 (0-34) U/L ALT 10 (10-49) U/L Alkaline Phosphatase 112 (46-116) U/L Albumin 4.1 (3.4-4.8) gm/dL Urine 12/25/24 Range/Units 14:58 Urine Color Lt-Yellow (Lt Yel-Yel) Urine Clarity Turbid A (Clear/Hazy) Urine pH 6.0 (5.0-7.0) Ur Specific [place] 1.010 (1.001-1.035) Urine Protein Negative (Neg - Trace) Urine Glucose (UA) Negative (Negative) Quality Measures Quality Measures none Advance care planning discussed with:: patient Medications Home Medications and Allergies Home Medications ?Medication ?Instructions ?Recorded ?Confirmed ?Type aspirin 81 mg tablet,delayed 81 mg PO QDAY 04/10/18 12/25/24 History release (Aspir-Low) atorvastatin 80 mg tablet 80 mg PO QDAY 04/10/18 12/25/24 History carvedilol 6.25 mg tablet 6.25 mg PO BID 04/10/18 12/25/24 History glipizide 2.5 mg tablet, extended 2.5 mg PO QDAY 04/10/18 12/25/24 History release 24 hr sacubitril 24 mg-valsartan 26 mg 1 tab PO BID 04/10/18 12/25/24 History tablet (Entresto) ticagrelor 90 mg tablet (Brilinta) 90 mg PO BID 04/10/18 12/25/24 History amlodipine 5 mg tablet 5 mg PO HS 12/25/24 12/25/24 History cyanocobalamin (vitamin B-12) 500 500 mcg PO QDAY 12/25/24 12/25/24 History mcg tablet (B-12 DOTS) ergocalciferol (vitamin D2) 1,250 1,250 mcg PO .m 12/25/24 12/25/24 History mcg (50,000 unit) capsule ferrous sulfate 325 mg (65 mg 325 mg PO TID 12/25/24 12/25/24 History iron) tablet Allergies Allergy/AdvReac Type Severity Reaction Status Date / Time No Known Allergies Allergy Verified 12/22/23 09:48 Visit Medications Enoxaparin Sodium (Enoxaparin Sod Inj 40 Mg/0.4 Ml Syringe) 40 mg SC QDAY JOSE LUIS Stop: 01/09/25 08:59 Discontinued Medications Aspirin (Aspirin 325 Mg Tablet) 325 mg PO X1 ONE Stop: 12/25/24 17:36 Last Admin: 12/25/24 17:52 Dose: 325 mg Sodium Chloride (Ns) 1,000 mls @ 999 mls/hr IV .Q1H1M ONE Stop: 12/25/24 14:43 Last Infusion: 12/25/24 15:14 Dose: Infused Meclizine HCl (Meclizine Hcl 25 Mg Tablet) 25 mg PO X1 ONE Stop: 12/25/24 13:44 Last Admin: 12/25/24 14:13 Dose: 25 mg Assessment & Plan Plan Patient is an 84-year-old female with a past medical history of CHF status post ICD, history of cardiac arrest, coronary artery disease, A-fib, diabetes mellitus type 2, who presented to the ER with chief complaint of dizziness. Problems: 1. Type II NSTEMI 2. Left bundle branch block 3. History of A-fib 4. HFrEF status post ICD 5. History of hypertension 6. History of diabetes mellitus type 2 7. Coronary artery disease status post PCI 8. History of cardiac arrest 2018 Cardiology was consulted for elevated troponins, and near syncopal symptoms. Elevated troponins likely secondary to type II [place], troponins peaked at 0.272, now downtrending, patient has history of coronary artery disease, history of cardiac arrest in 2018, patient takes aspirin and Brilinta at home for CAD, reported atypical symptoms, chest discomfort with crackling sound, denies shortness of breath. EKG shows left bundle branch block, which is similar to patient's prior EKGs. Patient has ICD placed likely secondary to HFrEF, bedside echocardiogram was performed limited study, which showed poor LV contractility, estimated EF 25%, no previous echocardiogram on file. Patient follows tool room attendant Dr. Geni Siegel. At this time, no need for heparin drip, likely supply/demand ischemia type II, if patient continues to develop new symptoms or chest pain, can consider heparin GTT. ? Resume home medications after med rec reconciled ? Orthostatic vitals ordered ? Echocardiogram ordered ? Grinder Dresser Dr. Geni Siegel to resume care from tomorrow. Rest of the management deferred to primary team. Thank you for cardiology consultation. We appreciate the opportunity to participate in this patient's care. Patient's tool room attendant Dr. Geni Siegel will assume care from tomorrow. This case was discussed with tool room attendant, Dr. Carrillo. Ansley Covarrubias MD PG3 Attending Provider Attestation/Addendum I have personally seen and examined the patient separately on the above date of service and discussed the plan of care with the resident. I reviewed the resident Dr. Panchal consultation progress note and agree with the resident findings and plan in the note above and have also edited the documentation to reflect my findings and plan. Oracio Carrillo M.D. Interventional Cardiology
--- NOTE | 2024-12-25 23:00 | PC.NURSE ---
orthostatic vital signs as follows. laying down - 157/74 HR 70, Sitting - 156/63 HR 68, Standing- 154/83 HR 88. patient denies chest pain, SOB, or dizziness
[2024-12-25] MEDS: ATORVASTATIN CALCIUM 20 MG TABLET 80 MG PO (23:32)
[2024-12-25] MEDS: cefTRIAXone/D5w 1gm IV premix 1 GM/50 ML BAG IV (23:33)
[2024-12-25] MEDS: Magnesium Sulfate 4 GM Ivpb 4 GM/50 ML BAG IV (23:33)
[2024-12-25] MEDS: TICAGRELOR 90 MG TABLET PO (23:43)
[2024-12-26] VITALS (8 sets, daily range): BP systolic 102–150; BP diastolic 53–75; PULSE 69–88; RESP 14–97; TEMP 36.1–36.6; O2SAT 96–98
[2024-12-26 06:11] LABS: Basophils # (Auto) 0.0 Thou/mm3 (0.0-0.2); Basophils % (Auto) 0 % (0-2.5); Eosinophils # (Auto) 0.3 Thou/mm3 (0.0-0.5); Eosinophils % (Auto) 3 % (0-10); Hematocrit 34.1 % (36.0-46.0); Hemoglobin 11.1 g/dL (12.0-16.0); Immature Granulocytes Auto 0.02 Thou/mm3 (0.00-0.00); Lymphocytes # (Auto) 1.5 Thou/mm3 (1.0-4.8); Lymphocytes % (Auto) 16 % (10-50); Mean Corpuscular HGB Conc 32.6 g/dl (31.0-37.0); Mean Corpuscular Hemoglobin 32.1 pg (25.0-35.0); Mean Corpuscular Volume 99 fL (80-100); Monocytes # (Auto) 0.6 Thou/mm3 (0.0-0.8); Monocytes % (Auto) 6 % (0-12); Neutrophils # (Auto) 7.2 Thou/mm3 (1.8-7.7); Neutrophils % (Auto) 75 % (37-80); Nucleated Red Blood Cell # 0.00 Thou/mm3 (0.00-0.00); Nucleated Red Blood Cell % 0 /100 WBC (0); Platelet Count 198 Thou/mm3 (140-440); RDW Standard Deviation 50.1 fL (36.4-46.3); Red Blood Count 3.46 Miln/mm3 (4.00-5.20); White Blood Count 9.6 Thou/mm3 (3.6-11.0)
[2024-12-26 06:45] LABS: Anion Gap 10 (7-16); BUN/Creatinine Ratio 10 Ratio (12-20); Blood Urea Nitrogen 10 mg/dL (9-23); Calcium 9.2 mg/dL (8.3-10.6); Carbon Dioxide 26.2 mMol/L (20.0-31.0); Chloride 110 mMol/L (98-107); Creatinine (Component) 1.0 mg/dL (0.6-1.3); Estimated Creatinine Clearance 37.0 mL/min (>60); Glucose 102 mg/dL (74-106); Magnesium 2.5 mg/dL (1.6-2.6); Osmolality,Calculated 289 (275-295); Potassium 3.1 mMol/L (3.4-5.1); Sodium 146 mMol/L (136-145); eGFR 55 See Note
[2024-12-26] MEDS: cefTRIAXone/D5w 1gm IV premix 1 GM/50 ML BAG IV (08:41)
[2024-12-26] MEDS: ENOXAPARIN SOD INJ 40 MG/0.4 ML SYRINGE SC (08:41)
[2024-12-26] MEDS: PANTOPRAZOLE 40 MG TABLET PO (08:42)
[2024-12-26] MEDS: TICAGRELOR 90 MG TABLET PO ×2 (08:42→21:06)
[2024-12-26] MEDS: ASPIRIN EC 81 MG TABEC PO (08:42)
[2024-12-26] MEDS: POTASSIUM CHL 10 mEq IVPB 10 MEQ/100 ML BAG 50 MEQ IV ×4 (10:42→17:04)
--- NOTE | 2024-12-26 14:37 | PC.SS ---
Rounding note: Pt. pending cardiology recommendation whit Dr. Macias. D/c in 2 days.
--- NOTE | 2024-12-26 15:01 | PC.NURSE ---
Pt having more PVCs than usual. No symptoms at this time. resting in bed. on her 3rd bag of potassium. Called Dr. Cook and made aware.
--- NOTE | 2024-12-26 16:08 | PC.NURSE ---
Pt's blood pressure 155/77. 150/67. No symptoms at this time. talking and laughing with daughter. Called Dr. Cook and made aware.
--- NOTE | 2024-12-26 17:13 | ESPR_ITS ---
<Statement entered by Juan Cai MD - 12/26/24 19:47> Patient was examined and case was reviewed with team including attending physician. Note reviewed, I agree with most of its contents and agree with the patient's care. Patient seen today at the bedside found awake, alert, orientedx3. No overnight events reported. Vitals and labs reviewed. Bedside echo was done by cardiology team showed left ventricular ejection fraction of about 25%. Cardiology evaluated the patient in the afternoon and cleared the patient for discharge. Currently on antibiotic therapy for urinary tract infection will transition to p.o. route prior to discharge. Anticipate discharge in the next 24-48 hours. Case discussed with my attending Dr. Philipp Cai MD PGY-2 Documentation for date of: 12/26/24 Subjective Subjective Interval history: Patient evaluated at bedside. Reports no chest pain, chest pressure, headache, acute vision changes, paresthesias, weakness. Patient reports that she is able to ambulate on her own and does not require PT at this time. Reports no new symptoms at this time. 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 Bedside echo showed LVEF 25%. Exam Vital Signs Temp Pulse Resp BP Pulse Ox O2 Del Method 97.0 F 75 21 H 119/53 L 96 Room Air 12/26/24 12:00 12/26/24 12:12/26/24 12:12/26/24 12:12/26/24 12:12/26/24 12:00 Narrative Exam General: No acute distress, well nourished Eye: PERRL, EOMI, normal conjunctiva, no scleral icterus HENT: Normocephalic, atraumatic, normal hearing, moist oral mucosa Neck: Supple, non-tender, no JVD, no lymphadenopathy Lungs: Clear to auscultation bilaterally, non-labored respirations, symmetric chest rise, no use of accessory muscles Heart: Normal S1 and S2, no S3 or S4 appreciated. Normal rate and regular rhythm, no murmurs, rubs gallops, or edema. Peripheral pulses intact bilaterally, capillary refill brisk distally Abdomen: Soft, non-tender, non-distended, normal bowel sounds. No guarding or rebound tenderness. Musculoskeletal: Normal range of motion and strength, no tenderness or swelling Skin: Skin is warm, dry, no rashes or lesions. Neurologic: Alert, awake and oriented x3. CN II-XII grossly intact. No focal neuro deficits. No signs of meningeal irritation noted. Psychiatric: Cooperative, appropriate mood and affect Objective Labs 12/27/24 04:43 12/27/24 04:43 Labs: Laboratory Results - last 24 hr 12/25/24 12/25/24 12/25/24 14:18 16:38 20:09 WBC RBC Hgb Hct MCV MCH MCHC RDW Std Deviation Plt Count Neut % (Auto) Lymph % (Auto) [place] % (Auto) Eos % (Auto) Baso % (Auto) Neut # (Auto) Lymph # (Auto) [place] # (Auto) Eos # (Auto) Baso # (Auto) Immature Gran # (Auto) Absolute Nucleated RBC Immature Gran % Nucleated RBC % Sodium Potassium Chloride Carbon Dioxide Anion Gap BUN Creatinine Estim Creat Clear Calc eGFR BUN/Creatinine Ratio Glucose Calculated Osmolality Calcium Phosphorus 2.8 Magnesium 1.4 L Troponin I 0.272 H* 0.204 H* 12/26/24 05:05 WBC 9.6 RBC 3.46 L Hgb 11.1 L Hct 34.1 L MCV 99 MCH 32.1 MCHC 32.6 RDW Std Deviation 50.1 H Plt Count 198 Neut % (Auto) 75 Lymph % (Auto) 16 [place] % (Auto) 6 Eos % (Auto) 3 Baso % (Auto) 0 Neut # (Auto) 7.2 Lymph # (Auto) 1.5 [place] # (Auto) 0.6 Eos # (Auto) 0.3 Baso # (Auto) 0.0 Immature Gran # (Auto) 0.02 H Absolute Nucleated RBC 0.00 Immature Gran % 0 Nucleated RBC % 0 Sodium 146 H Potassium 3.1 L D Chloride 110 H Carbon Dioxide 26.2 Anion Gap 10 BUN 10 Creatinine 1.0 Estim Creat Clear Calc 37.0 L eGFR 55 L BUN/Creatinine Ratio 10 L Glucose 102 D Calculated Osmolality 289 Calcium 9.2 Phosphorus Magnesium 2.5 Troponin I Quality Measures Quality Measures VTE prophylaxis Advance care planning discussed with:: patient Assessment & Plan Assessment Current Active Medications: Generic Name Dose Route Start Last Admin Trade Name Freq PRN Reason Stop Dose Admin Acetaminophen 650 mg 12/25/24 22:08 Acetaminophen 325 Mg Tablet PO 01/24/25 22:07 Q6H PRN Fever >100.4 Acetaminophen 650 mg 12/25/24 22:08 Acetaminophen 325 Mg Tablet PO 01/24/25 22:07 Q6H PRN PAIN SCALE 1-3 (mild Hydrocodone Bitart/Acetaminophen 1 tab 12/25/24 22:08 Hydrocodone/Apap 5/325 Tablet PO 12/30/24 22:07 Q4HR PRN PAIN SCALE 4-6 (Moderate Aspirin 81 mg 12/26/24 09:00 12/26/24 08:42 Aspirin Ec 81 Mg Tabec PO 01/25/25 08:59 81 mg QDAY JOSE LUIS Administration Atorvastatin Calcium 80 mg 12/25/24 22:20 12/25/24 23:32 Atorvastatin Calcium 20 Mg Tablet PO 01/24/25 21:00 80 mg HS JOSE LUIS Administration Dextrose 25 ml 12/25/24 22:18 Dextrose 50%-Water Inj 50 Ml Syringe IV 01/24/25 22:17 Q15MIN PRN BG 50-70 responsive npo pt Dextrose 50 ml 12/25/24 22:18 Dextrose 50%-Water Inj 50 Ml Syringe IV 01/24/25 22:17 Q15MIN PRN BG <50 OR BG <70 & pt unresponsive Enoxaparin Sodium 40 mg 12/26/24 09:00 12/26/24 08:41 Enoxaparin Sod Inj 40 Mg/0.4 Ml Syringe SC 01/09/25 08:59 40 mg QDAY JOSE LUIS Administration Ceftriaxone Sodium/Dextrose 1 gm in 50 mls @ 100 mls/hr 12/25/24 22:21 12/26/24 08:41 Rocephin/D5w 1gm Iv Premix IV 12/28/24 22:20 100 mls/hr QDAY JOSE LUIS Administration Potassium Chloride 10 meq in 100 mls @ 50 mls/hr 12/26/24 10:00 12/26/24 17:04 Kcl Ivpb IV 12/26/24 17:59 50 mls/hr Q2H JOSE LUIS Administration Insulin Human Lispro 0 unit 12/26/24 07:30 12/26/24 17:05 Insulin Lispro (Admelog) 1 Unit/0.01 Ml Unit SC 01/25/25 07:29 Not Given AC JOSE LUIS Protocol Ondansetron HCl 4 mg 12/25/24 22:08 Ondansetron Inj 2 Mg/Ml Inj 2 Ml IVP 01/24/25 22:07 Q6H PRN NAUSEA OR VOMITING Protocol Pantoprazole Sodium 40 mg 12/26/24 09:00 12/26/24 08:42 Pantoprazole 40 Mg Tablet PO 01/25/25 08:59 40 mg QDAY JOSE LUIS Administration Sacubitril/Valsartan 2 tab 12/25/24 22:30 12/26/24 08:42 Sacubitril 24 Mg/Valsartan 26 Mg Tablet PO 01/24/25 22:29 2 tab BID JOSE LUIS Administration Sennosides 1 tab 12/25/24 22:08 Senna Tablet PO 01/24/25 22:07 QDAY PRN constipation Protocol Ticagrelor 90 mg 12/25/24 23:30 12/26/24 08:42 Ticagrelor 90 Mg Tablet PO 01/24/25 23:29 90 mg BID JOSE LUIS Administration Plan 84-year-old female with a history of CHF, atrial fibrillation (s/p pacemaker), myocardial infarction (2018), hypertension, and type 2 diabetes mellitus admitted for presyncope workup and demand ischemia NSTEMI. #Presyncope Likely multifactorial presyncope (vasovagal, volume depletion, or arrhythmia- related); no fall or LOC. EKG: Sinus with PVCs, T-wave changes Head CT negative CXR negative Plan: - Monitor with orthostatics and tele - Cardiology consulted, appreciate recs - Maintain euvolemia #NSTEMI (likely Type II) Troponin peaked at 0.272 now down to 0.204, no chest pain or ischemic symptoms; likely Type II SC in setting of brief hypoperfusion. EKG: Old anteroseptal SC, T-wave abnormalities Given loading dose ASA 325 mg x1 Patient asymptomatic upon re-examination Plan: - Continue ASA 81 mg daily, atorvastatin 80 mg daily, Ticagrelor 90 mg PO BID #UTI UA with +LE, blood, WBCs; occasional burning sensation Plan: - Pending urine culture - Continue epmpiric Ceftriaxone 1 gm daily x 7 days (12/26 - ) #Atrial Fibrillation, s/p Pacemaker History of A-fib, now in sinus; Patient on DAPT Plan: - Tele monitor - Continue lovenox 40 mg subQ daily #Congestive Heart Failure (chronic, compensated) No acute decompensation; CXR clear, patient denies dyspnea or orthopnea. Bedside TTE showed LVEF 25% Plan: - Continue Entresto 2 mg PO BID #Type 2 Diabetes Mellitus Glucose 190 in ED, no symptoms. Plan: - SSI #Hypertension Patient HTN controlled inpatient Plan: - Hold home meds #Hypokalemia Plan: - Repletion as needed #Chronic Left Hip Pain, s/p ORIF (1+ year ago) No acute changes; mild pain with movement. Patient able to ambulate with support Plan: - Tylenol PRN, [place] PRN Health Maintenance: Disposition: Pending urine cx for appropriate abx of UTI Feeding: Regular diet Thromboprophylaxis: Enoxaparin 40 mg SQ daily GI prophylaxis: Protonix Code Status: Full Plan discussed with Dr. Neil Cai (senior resident) and Dr. Segal (attending) Xochitl Cook MD PGY1 Attending Provider Attestation/Addendum I have examined the patient, reviewed labs and imaging findings, discussed the case with the resident(s), and reviewed entered orders. I agree with the plan of care as outlined in this note, with these additional summaries/recommendations: Patient seen at bedside. No acute overnight events. Today at bedside patient reports resolution of chest pain. She denies shortness of breath, chest pain, palpitations, and no lightheadedness/dizziness. Patient had presyncope prior to arrival. She does have a history of atrial fibrillation although no arrhythmia noted on telemetry thus far. Orthostatic vital signs pending. We will follow- up with cardiology if echocardiogram. Patient was also found to have elevated troponins on admission. Troponin peaked at 0.272. Most likely secondary to demand ischemia although patient does have an extensive cardiac history including CAD status post PCI, cardiac arrest in 2019, and HFrEF. We will continue home Brilinta, aspirin, and atorvastatin. LDL at goal. Cardiology consulted, recommendations appreciated. Patient has HFrEF on Coreg and Entresto. Will continue to optimize goal-directed medical therapy as tolerated. Does not appear to be in CHF exacerbation at this time. Mild hypokalemia present and replacement given, repeat level in AM. Patient also diagnosed with urinary tract infection and receiving IV Rocephin. Follow-up urine culture. Continue basal and bolus insulin for diabetes mellitus type 2. Target blood sugar 140-180 while hospitalized. We updated on the plan. All questions answered to satisfaction. Please see residents note for additional details and management. Dr. Philipp MD
--- NOTE | 2024-12-26 19:54 | ESPR_ITS ---
<Statement entered by Adela Siegel MD - 12/28/24 18:25> I have known this patient personally examined the patient alongside history of CAD ischemic heart disease previous stent placement myocardial infarction ICD implantation doing fairly well came to the hospital nonspecific symptoms not have any chest pain shortness breath continues to feel well we can discharge the patient home I will see her for follow-up as an outpatient. No evidence of any acute cardiac events for now to be concerned. Evaluated patient with resident physician PGY 2 Dr. Monroe agree with the treatment plan recommendation as documented Documentation for date of: 12/26/24 Subjective Subjective Interval history: No acute overnight events. Reports feeling well today. Denies fever, chills, headaches, chest pain, sob, cough, GI or urinary symptoms. Exam Vital Signs Temp Pulse Resp BP Pulse Ox O2 Del Method 97.3 F 86 19 150/67 H 98 Room Air 12/26/24 16:00 12/26/24 16:00 12/26/24 16:00 12/26/24 16:00 12/26/24 16:00 12/26/24 16:00 Narrative Exam GENERAL * Appearing elderly male, on room air, NAD. HEENT * NCAT.?[place]. Oral mucosa is moist. Patent Nares NECK * Supple, nontender, no JVD. CHEST * RRR, no m/g/r * CTAB, no w/r/r, symmetrical expansion. ABDOMEN * Soft, flat, nontender. No guarding/rebound tenderness/masses. * Bowel sounds presents EXTREMITIES * No edema/cyanosis.? SKIN * Warm and dry, no jaundice/rashes. NEUROMUSCULAR * No focal neurologic deficits. PSYCHIATRY * Normal mood and affect, cooperative, no SI or HI or hallucinations. Objective Labs 12/27/24 04:43 12/27/24 04:43 Labs: Laboratory Results - last 24 hr 12/25/24 12/26/24 20:09 05:05 WBC 9.6 RBC 3.46 L Hgb 11.1 L Hct 34.1 L MCV 99 MCH 32.1 MCHC 32.6 RDW Std Deviation 50.1 H Plt Count 198 Neut % (Auto) 75 Lymph % (Auto) 16 [place] % (Auto) 6 Eos % (Auto) 3 Baso % (Auto) 0 Neut # (Auto) 7.2 Lymph # (Auto) 1.5 [place] # (Auto) 0.6 Eos # (Auto) 0.3 Baso # (Auto) 0.0 Immature Gran # (Auto) 0.02 H Absolute Nucleated RBC 0.00 Immature Gran % 0 Nucleated RBC % 0 Sodium 146 H Potassium 3.1 L D Chloride 110 H Carbon Dioxide 26.2 Anion Gap 10 BUN 10 Creatinine 1.0 Estim Creat Clear Calc 37.0 L eGFR 55 L BUN/Creatinine Ratio 10 L Glucose 102 D Calculated Osmolality 289 Calcium 9.2 Magnesium 2.5 Troponin I 0.204 H* Quality Measures Quality Measures VTE prophylaxis Advance care planning discussed with:: patient Assessment & Plan Assessment Current Active Medications: Generic Name Dose Route Start Last Admin Trade Name Freq PRN Reason Stop Dose Admin Acetaminophen 650 mg 12/25/24 22:08 Acetaminophen 325 Mg Tablet PO 01/24/25 22:07 Q6H PRN Fever >100.4 Acetaminophen 650 mg 12/25/24 22:08 Acetaminophen 325 Mg Tablet PO 01/24/25 22:07 Q6H PRN PAIN SCALE 1-3 (mild Hydrocodone Bitart/Acetaminophen 1 tab 12/25/24 22:08 Hydrocodone/Apap 5/325 Tablet PO 12/30/24 22:07 Q4HR PRN PAIN SCALE 4-6 (Moderate Aspirin 81 mg 12/26/24 09:00 12/26/24 08:42 Aspirin Ec 81 Mg Tabec PO 01/25/25 08:59 81 mg QDAY JOSE LUIS Administration Atorvastatin Calcium 80 mg 12/25/24 22:20 12/25/24 23:32 Atorvastatin Calcium 20 Mg Tablet PO 01/24/25 21:00 80 mg HS JOSE LUIS Administration Dextrose 25 ml 12/25/24 22:18 Dextrose 50%-Water Inj 50 Ml Syringe IV 01/24/25 22:17 Q15MIN PRN BG 50-70 responsive npo pt Dextrose 50 ml 12/25/24 22:18 Dextrose 50%-Water Inj 50 Ml Syringe IV 01/24/25 22:17 Q15MIN PRN BG <50 OR BG <70 & pt unresponsive Enoxaparin Sodium 40 mg 12/26/24 09:00 12/26/24 08:41 Enoxaparin Sod Inj 40 Mg/0.4 Ml Syringe SC 01/09/25 08:59 40 mg QDAY JOSE LUIS Administration Ceftriaxone Sodium/Dextrose 1 gm in 50 mls @ 100 mls/hr 12/25/24 22:21 12/26/24 08:41 Rocephin/D5w 1gm Iv Premix IV 12/28/24 22:20 100 mls/hr QDAY JOSE LUIS Administration Insulin Human Lispro 0 unit 12/26/24 07:30 12/26/24 17:05 Insulin Lispro (Admelog) 1 Unit/0.01 Ml Unit SC 01/25/25 07:29 Not Given AC JOSE LUIS Protocol Ondansetron HCl 4 mg 12/25/24 22:08 Ondansetron Inj 2 Mg/Ml Inj 2 Ml IVP 01/24/25 22:07 Q6H PRN NAUSEA OR VOMITING Protocol Pantoprazole Sodium 40 mg 12/26/24 09:00 12/26/24 08:42 Pantoprazole 40 Mg Tablet PO 01/25/25 08:59 40 mg QDAY JOSE LUIS Administration Sacubitril/Valsartan 2 tab 12/25/24 22:30 12/26/24 08:42 Sacubitril 24 Mg/Valsartan 26 Mg Tablet PO 01/24/25 22:29 2 tab BID JOSE LUIS Administration Sennosides 1 tab 12/25/24 22:08 Senna Tablet PO 01/24/25 22:07 QDAY PRN constipation Protocol Ticagrelor 90 mg 12/25/24 23:30 12/26/24 08:42 Ticagrelor 90 Mg Tablet PO 01/24/25 23:29 90 mg BID JOSE LUIS Administration Plan Is an 84-year-old female PMHx of CHF s/p ICD, A-fib, Hx cardiac arrest, CAD, A- fib, T2DM, further workup of presyncope with demand ischemia. Presyncope, likely orthostatics NSTEMI type II HFrEF, EF 25% s/p ICD History of A-fib Left bundle branch block on EKG Cardiac arrest 2018 CAD s/p PCI Patient admitted for workup with findings of elevated troponin which peaked at 0.272 (likely demand ischemia secondary to volume depletion). EKG showed no acute ST changes but was redemonstrated old findings of LBBB. She reported atypical symptoms described as chest discomfort but no shortness of breath. Currently does not endorse chest pain or shortness of breath, no indication for HEPARIN drip at this time but will continue to monitor. Orthostatic vitals positive with rise of heart rate about 8 points likely in settings of fluid loss and UTI. ? Appears stable from cardiac perspective. Recommended follow-up in office with 2 weeks. ? Continue home BRILINTA and ASPIRIN for CAD/previous cardiac arrest. Overall appear stable from cardiology's perspective. ? Continue home ASPIRIN ? Continue high-dose statin ? Maintain K > 4.0 and Mg > 2.0 ? Will follow-up with echocardiogram ? Continue fluid repletion ? Continue treating UTI Type 2 Diabetes Mellitus Hypertension Hypokalemia Chronic Left Hip Pain, s/p ORIF (1+ year ago) Managed by primary team. Appreciate the opportunity to participate in this patient's care. Case was discussed with attending physician, Dr. Robbin Monroe, DO PGY II This document was transcribed using voice recognition technology. Minor inaccuracies may be present.
[2024-12-26 21:02] LABS: Thyroid Stimulating Hormone 5.94 uIU/mL (0.55-4.78)
[2024-12-26] MEDS: ATORVASTATIN CALCIUM 20 MG TABLET 80 MG PO (21:06)
[2024-12-27] VITALS (8 sets, daily range): BP systolic 118–175; BP diastolic 57–84; PULSE 71–99; RESP 14–97; TEMP 36.1–36.8; O2SAT 95–99; BMI 27.1
--- NOTE | 2024-12-27 03:52 | PC.NURSE ---
notified Dr. Breen of patient having more pvc's. will monitor
[2024-12-27 06:00] LABS: Basophils # (Auto) 0.0 Thou/mm3 (0.0-0.2); Basophils % (Auto) 0 % (0-2.5); Eosinophils # (Auto) 0.3 Thou/mm3 (0.0-0.5); Eosinophils % (Auto) 4 % (0-10); Hematocrit 32.2 % (36.0-46.0); Hemoglobin 10.3 g/dL (12.0-16.0); Immature Granulocytes Auto 0.01 Thou/mm3 (0.00-0.00); Lymphocytes # (Auto) 1.8 Thou/mm3 (1.0-4.8); Lymphocytes % (Auto) 24 % (10-50); Mean Corpuscular HGB Conc 32.0 g/dl (31.0-37.0); Mean Corpuscular Hemoglobin 31.7 pg (25.0-35.0); Mean Corpuscular Volume 99 fL (80-100); Monocytes # (Auto) 0.6 Thou/mm3 (0.0-0.8); Monocytes % (Auto) 8 % (0-12); Neutrophils # (Auto) 4.7 Thou/mm3 (1.8-7.7); Neutrophils % (Auto) 63 % (37-80); Nucleated Red Blood Cell # 0.00 Thou/mm3 (0.00-0.00); Nucleated Red Blood Cell % 0 /100 WBC (0); Platelet Count 194 Thou/mm3 (140-440); RDW Standard Deviation 51.0 fL (36.4-46.3); Red Blood Count 3.25 Miln/mm3 (4.00-5.20); White Blood Count 7.4 Thou/mm3 (3.6-11.0)
[2024-12-27 06:41] LABS: Alanine Aminotransferase < 7 U/L (10-49); Albumin, Serum 3.5 gm/dL (3.4-4.8); Albumin/Globulin Ratio 1.6 (1.2-2.2); Alkaline Phosphatase 93 U/L (46-116); Anion Gap 7 (7-16); Aspartate Amino Transferase 15 U/L (0-34); BUN/Creatinine Ratio 11 Ratio (12-20); Bilirubin,Total 0.6 mg/dL (0.3-1.2); Blood Urea Nitrogen 11 mg/dL (9-23); Calcium 8.6 mg/dL (8.3-10.6); Calcium (Corrected) 9.0 mg/dL (8.5-10.1); Carbon Dioxide 27.0 mMol/L (20.0-31.0); Chloride 110 mMol/L (98-107); Creatinine (Component) 1.0 mg/dL (0.6-1.3); Estimated Creatinine Clearance 37.0 mL/min (>60); Globulin 2.2 gm/dL (2.3-3.5); Glucose 96 mg/dL (74-106); Magnesium 1.3 mg/dL (1.6-2.6); Osmolality,Calculated 286 (275-295); Phosphorous 3.1 mg/dL (2.4-5.1); Potassium 4.3 mMol/L (3.4-5.1); Sodium 144 mMol/L (136-145); Total Protein 5.7 gm/dL (5.7-8.2); eGFR 55 See Note
[2024-12-27 08:35] LABS: Free T4 (Free Thyroxine) 0.98 ng/dL (0.89-1.76)
--- NOTE | 2024-12-27 08:53 | ESPR_ITS ---
<Statement entered by Juan Cai MD - 12/27/24 18:04> Patient was examined and case was reviewed with team including attending physician. Note reviewed, I agree with most of its contents and agree with the patient's care. Case discussed with my attending Dr. Philipp Cai MD PGY-2 Documentation for date of: 12/27/24 Subjective Subjective Interval history: Pt is a 84 y.o F w/ PMH of CHF, HT, PR and T2DM who presented to the ED w/ dizziness episodes lasting greater than 10 seconds followed by prolonged periods of generalized malaise. EKG showed T wave abnormalities which were concerning for acute lateral ischemia and troponins were elevated at 0.11-> 0.272-> 0.204. Today pt states that she is much improved with no episodes of dizziness in the past 24 hours and she would like to be discharged today if possible. She has no questions or concerns at this time. Exam Vital Signs Temp Pulse Resp BP Pulse Ox O2 Del Method 97.5 F 87 14 147/77 H 95 Room Air 12/27/24 08:00 12/27/24 08:00 12/27/24 08:00 12/27/24 08:00 12/27/24 08:00 12/27/24 08:00 Narrative Exam Pt had clear breath sounds bilaterally and cardiac exam yielded RRR without any murmurs auscltated Objective Objective Narrative Objective Narrative: Vital signs are steady and stable. lungs show clear breath sounds bilaterally and cardiac exam shows regular rate and rhythm w/o murmur. urine culture resulted negative with no growth noted after 48 hrs. Labs 12/27/24 04:43 12/27/24 04:43 Labs: Laboratory Results - last 24 hr 12/26/24 12/27/24 05:05 04:43 WBC 7.4 RBC 3.25 L Hgb 10.3 L Hct 32.2 L MCV 99 MCH 31.7 MCHC 32.0 RDW Std Deviation 51.0 H Plt Count 194 Neut % (Auto) 63 Lymph % (Auto) 24 [place] % (Auto) 8 Eos % (Auto) 4 Baso % (Auto) 0 Neut # (Auto) 4.7 Lymph # (Auto) 1.8 [place] # (Auto) 0.6 Eos # (Auto) 0.3 Baso # (Auto) 0.0 Immature Gran # (Auto) 0.01 H Absolute Nucleated RBC 0.00 Immature Gran % 0 Nucleated RBC % 0 Sodium 144 Potassium 4.3 D Chloride 110 H Carbon Dioxide 27.0 Anion Gap 7 BUN 11 Creatinine 1.0 Estim Creat Clear Calc 37.0 L eGFR 55 L BUN/Creatinine Ratio 11 L Glucose 96 Calculated Osmolality 286 Calcium 8.6 Corrected Calcium 9.0 Phosphorus 3.1 Magnesium 1.3 L Total Bilirubin 0.6 AST 15 ALT < 7 L Alkaline Phosphatase 93 Total Protein 5.7 Albumin 3.5 D Globulin 2.2 L Albumin/Globulin Ratio 1.6 TSH 5.94 H Free T4 0.98 Quality Measures Quality Measures VTE prophylaxis Advance care planning discussed with:: patient Assessment & Plan Assessment Current Active Medications: Generic Name Dose Route Start Last Admin Trade Name Freq PRN Reason Stop Dose Admin Acetaminophen 650 mg 12/25/24 22:08 Acetaminophen 325 Mg Tablet PO 01/24/25 22:07 Q6H PRN Fever >100.4 Acetaminophen 650 mg 12/25/24 22:08 Acetaminophen 325 Mg Tablet PO 01/24/25 22:07 Q6H PRN PAIN SCALE 1-3 (mild Hydrocodone Bitart/Acetaminophen 1 tab 12/25/24 22:08 Hydrocodone/Apap 5/325 Tablet PO 12/30/24 22:07 Q4HR PRN PAIN SCALE 4-6 (Moderate Amlodipine Besylate 5 mg 12/27/24 21:00 Amlodipine Besylate 5 Mg Tablet PO 01/26/25 20:59 HS JOSE LUIS Aspirin 81 mg 12/26/24 09:00 12/26/24 08:42 Aspirin Ec 81 Mg Tabec PO 01/25/25 08:59 81 mg QDAY JOSE LUIS Administration Atorvastatin Calcium 80 mg 12/25/24 22:20 12/26/24 21:06 Atorvastatin Calcium 20 Mg Tablet PO 01/24/25 21:00 80 mg HS JOSE LUIS Administration Dextrose 25 ml 12/25/24 22:18 Dextrose 50%-Water Inj 50 Ml Syringe IV 01/24/25 22:17 Q15MIN PRN BG 50-70 responsive npo pt Dextrose 50 ml 12/25/24 22:18 Dextrose 50%-Water Inj 50 Ml Syringe IV 01/24/25 22:17 Q15MIN PRN BG <50 OR BG <70 & pt unresponsive Enoxaparin Sodium 40 mg 12/26/24 09:00 12/26/24 08:41 Enoxaparin Sod Inj 40 Mg/0.4 Ml Syringe SC 01/09/25 08:59 40 mg QDAY JOSE LUIS Administration Ceftriaxone Sodium/Dextrose 1 gm in 50 mls @ 100 mls/hr 12/25/24 22:21 12/26/24 21:49 Rocephin/D5w 1gm Iv Premix IV 12/28/24 22:20 Infused QDAY JOSE LUIS Infusion Magnesium Sulfate 2 gm in 50 mls @ 25 mls/hr 12/27/24 07:55 Magnesium Sulfate Ivpb IV 12/27/24 09:54 X1 ONE Insulin Human Lispro 0 unit 12/26/24 07:30 12/27/24 07:38 Insulin Lispro (Admelog) 1 Unit/0.01 Ml Unit SC 01/25/25 07:29 Not Given AC JOSE LUIS Protocol Ondansetron HCl 4 mg 12/25/24 22:08 Ondansetron Inj 2 Mg/Ml Inj 2 Ml IVP 01/24/25 22:07 Q6H PRN NAUSEA OR VOMITING Protocol Pantoprazole Sodium 40 mg 12/26/24 09:00 12/26/24 08:42 Pantoprazole 40 Mg Tablet PO 01/25/25 08:59 40 mg QDAY JOSE LUIS Administration Sacubitril/Valsartan 2 tab 12/25/24 22:30 12/26/24 21:06 Sacubitril 24 Mg/Valsartan 26 Mg Tablet PO 01/24/25 22:29 2 tab BID JOSE LUIS Administration Sennosides 1 tab 12/25/24 22:08 Senna Tablet PO 01/24/25 22:07 QDAY PRN constipation Protocol Ticagrelor 90 mg 12/25/24 23:30 12/26/24 21:06 Ticagrelor 90 Mg Tablet PO 01/24/25 23:29 90 mg BID JOSE LUIS Administration Plan #Presyncope/NSTEMI type 2: pt presented with multiple episodes of dizziness and fatigue at time of admission. EKG showed t wave abnormalities indicative of acute anterior ischemia. pt also reports history of PR in 2018. Troponin count also serially elevated at 0.11-> 0.272-> 0.204. - maintain euvolemia to ensure adequete perfusion - Continue Aspirin 81mg, Ticagrelor 80mg, and home atorvostatin 80 mg - Cardio recommends continuation of home medications and has placed an order for Echo to be completed outpatient #UTI: Pt reported burning with urination and UA showed (+) leukocyte esterase, WBC's and blood in urine. - Preliminary UC shows negative growth. - Continue ceftriaxone until final result provided #Congestive Heart Failure (chronic, compensated) No acute decompensation; CXR clear, patient denies dyspnea or orthopnea. Bedside TTE showed LVEF 25% - Continue Entresto 2 mg PO BID #HTN: pt BP controlled inpatient - Hold home meds #Hypomagnesemia: Mg level at 1.3, which is 0.3 below normal threshold - replete magnesium until serum levels are within normal parameters This plan was discussed and approved by my senior resident, Dr. Neil Cai, and my attending Dr. Segal. - Dong Harkins (Medical Student) Attending Provider Attestation/Addendum I have examined the patient, reviewed labs and imaging findings, discussed the case with the resident(s), and reviewed entered orders. I agree with the plan of care as outlined in this note. Dr. Philipp MD
[2024-12-27] MEDS: cefTRIAXone/D5w 1gm IV premix 1 GM/50 ML BAG IV (09:11)
[2024-12-27] MEDS: ENOXAPARIN SOD INJ 40 MG/0.4 ML SYRINGE SC (09:11)
[2024-12-27] MEDS: Magnesium Sulfate 2 GM Ivpb 2 GM/50 ML BAG IV (09:12)
[2024-12-27] MEDS: TICAGRELOR 90 MG TABLET PO (09:12)
[2024-12-27] MEDS: PANTOPRAZOLE 40 MG TABLET PO (09:12)
[2024-12-27] MEDS: ASPIRIN EC 81 MG TABEC PO (09:13)
--- NOTE | 2024-12-27 14:31 | PC.SS ---
Rounding note: Heart attack r/o clear
--- NOTE | 2024-12-27 15:04 | ESDS_ITS ---
Planned Discharge Date 12/27/24 DS: Providers Provider Date of admission: 12/26/24 14:16 Primary care physician: Ryan Martinez MD Admitting Provider: Angeli Rodriguez MD Attending Provider on Admission: Lj Segal MD Consults: 12/25/24 18:05 Consult to Cardiology Stat Comment: Consulting Provider: Oracio Carrillo 12/26/24 08:27 Consult to Cardiology Stat Comment: Consulting Provider: Adela Siegel Attending Provider on DC: Lj Segal MD Discharging Provider: Shankar Felix MDStudecarmen Anticipated date of discharge: 12/27/24 DS: Diagnosis Problem List Completed Was Problem List Reviewed/Reconciled?: Yes Hospital Course Hospital Course Hospital course: Pt is a 84 y.o F w/ PMH of CHF, HT, NE and T2DM admitted for NSTEMI type 2, In the ED, pt reported dizziness episodes lasting greater than 10 seconds followed by prolonged periods of generalized malaise. EKG showed T wave abnormalities in leads V5/V6 and demonstrated old findings of LBBB and initial troponin which was elevated at 0.11. Cardiology was consulted and recommended patient admitted for workup with findings of elevated troponin which peaked at 0.272. She reported atypical symptoms described as chest discomfort but no shortness of breath. Cardiology states that pt appears stable from cardiac perspective and recommended follow-up in office with 2 weeks. Cardiolology recommended continuation of home meds of Brilinta, atorvostatin and Aspirin for history of CAD/ previous NE. Cardiology recommends Echocardiogram imaging to be done and will followup outpatient. Pt currently denies any episodes of presyncope, chest pain, or palpitations. Patient also was treated with antibiotic therapy for UTI. At this time patient is medically stable for discharge. Patient is recommended to follow-up with primary care physician within 1 week of discharge. Patient is instructed to follow-up with cardiology within 2 weeks of discharge for official echo and optimization of medications. Patient is instructed to take her medications as prescribed. Patient instructed should her symptoms recur or worsen patient is instructed to return to the ER. Problem list: #Presyncope/NSTEMI type 2 #UTI #Congestive Heart Failure (chronic, compensated) #Hypertension #Hypomagnesemia-resolved Case discussed with my attending Dr. Philipp Harkins, Medstudent Juan Cai MD PGY-2 Status at Discharge Cognitive/behavioral status at discharge: * Pt is Alert x Oriented x4 Time Spent with Patient Time attestation: Total time spent providing and/or coordinating discharge services: Time spent: Greater than 30 minutes Exam Vital Signs Temp Pulse Resp BP Pulse Ox O2 Del Method 97.0 F 85 16 118/57 L 96 Room Air 12/27/24 14:14 12/27/24 14:14 12/27/24 14:14 12/27/24 14:14 12/27/24 14:14 12/27/24 14:14 Narrative Exam Physical Exam GENERAL: NAD, AAOx3 HEENT: Moist mucosa. Eyes open, symmetrical, & clear CARDIO: Heart RRR, no obvious murmurs PULM: No noted coughing/dyspnea CTA B/L, no R/W/R GI: Abdomen soft, nondistended, no pain on palpation. BSx4 SKIN/MSK/EXT: No wounds/rashes/edema/amputations, no pain on palpation. Pedal pulses present B/L NEURO: AAOx3, no focal neuro deficits, able to move all 4 extremities Discharge Plan Plan Patient Disposition: HOME (Self Care) Care Plan Goals: Follow up with primary care physician within 1 week of discharge Follow up with Cardiology within 2 weeks of discharge to get official echocardiogram You have orthostatic hypotension, please avoid sudden changes in position and hydrate well. Work up for orthostatics can be done as outpatient with Cardiology. Please follow up with cardiology. Please take all your medications as prescribed Should your symptoms recur or worsen patient is instructed to return to the ED. Prescriptions/Referrals Prescriptions/Med Rec: Continued atorvastatin 80 mg Tablet 80 mg PO QDAY carvedilol 6.25 mg Tablet 6.25 mg PO BID aspirin [Aspir-Low] 81 mg Tablet,Delayed Release (Dr/Ec) 81 mg PO QDAY glipizide 2.5 mg Tablet Extended Release 24 Hr 2.5 mg PO QDAY ticagrelor [Brilinta] 90 mg Tablet 90 mg PO BID Entresto 24-26 mg Tablet 1 tab PO BID ferrous sulfate 325 mg (65 mg iron) tablet 325 mg PO TID Patient Comments: TAKE 1 TABLET BY MOUTH THREE TIMES A DAY amlodipine 5 mg tablet 5 mg PO HS Patient Comments: TAKE 1 TABLET BY MOUTH EVERY DAY ergocalciferol (vitamin D2) 1,250 mcg (50,000 unit) capsule 1,250 mcg PO .m Patient Comments: takes once a month on mondays cyanocobalamin (vitamin B-12) [B-12 DOTS] 500 mcg tablet 500 mcg PO QDAY Referrals: Ryan Martinez MD [Primary Care Provider] - Patient/Caregiver Discharge Instructions Education Materials: Heart Attack Dc Print Language: [place] Islander Stand Alone Forms: Nadine Award Info., Patient Portal Info Letter Discharge Order Discharge Orders: Discharge (Routine); Ordered 12/27/24 Ordered By: Juan Cai Quality Discharge Quality Measures VTE prophylaxis MD Attestestation MD Attestation I have examined the patient, reviewed labs and imaging findings, discussed the case with the resident(s), and reviewed entered orders. I agree with the plan of care as outlined in this note. Time Spent: [address] Philipp MD
== END 2024-12-27 14:35 | disposition home or self-care (01) | DRG 281 ==
LOC: SERX 18:05 → S2NX 12-26 14:22 → SERHOLD 12-28 08:01 → S2NX 12-28 08:01
PROVIDERS: Student in an Organized Health Care Education/Training Program; Admitting Provider Student in an Organized Health Care Education/Training Program; Emergency Provider Family Medicine; PCP Family Medicine; Visit Provider Student in an Organized Health Care Education/Training Program
DX: R55 Syncope and collapse (principal); I50.22 Chronic systolic (congestive) heart failure; I21.A1 Myocardial infarction type 2; N39.0 Urinary tract infection, site not specified; Z95.810 Presence of automatic (implantable) cardiac defibrillator; I11.0 Hypertensive heart disease with heart failure; E11.9 Type 2 diabetes mellitus without complications; I48.91 Unspecified atrial fibrillation; I25.2 Old myocardial infarction; G89.29 Other chronic pain; I44.7 Left bundle-branch block, unspecified; I25.10 Atherosclerotic heart disease of native coronary artery without angina pectoris; E87.6 Hypokalemia; E83.42 Hypomagnesemia; I49.3 Ventricular premature depolarization; Z79.02 Long term (current) use of antithrombotics/antiplatelets; Z79.82 Long term (current) use of aspirin; Z79.899 Other long term (current) drug therapy; Z86.74 Personal history of sudden cardiac arrest; Z95.5 Presence of coronary angioplasty implant and graft
CPT/HCPCS: 36415; 70450; 71045; 80048; 80053; 81001; 83735; 84100; 84439; 84443; 84484; 85025; 85610; 85730; 87086; 87811; 93005; 96360; 99283; G0378; J0696; J1650; J3475; J3480; J7030; A9270

== ENCOUNTER → 2025-02-27 | Outpatient (CLI) | payer MEDICARE, BC, MEDICAID, SELFPAY ==
[2025-02-27 11:40] LABS: Basophils # (Auto) 0.0 Thou/mm3 (0.0-0.2); Basophils % (Auto) 1 % (0-2.5); Eosinophils # (Auto) 0.3 Thou/mm3 (0.0-0.5); Eosinophils % (Auto) 3 % (0-10); Hematocrit 33.0 % (36.0-46.0); Hemoglobin 10.9 g/dL (12.0-16.0); Immature Granulocytes Auto 0.01 Thou/mm3 (0.00-0.00); Lymphocytes # (Auto) 1.2 Thou/mm3 (1.0-4.8); Lymphocytes % (Auto) 15 % (10-50); Mean Corpuscular HGB Conc 33.0 g/dl (31.0-37.0); Mean Corpuscular Hemoglobin 32.2 pg (25.0-35.0); Mean Corpuscular Volume 98 fL (80-100); Monocytes # (Auto) 0.5 Thou/mm3 (0.0-0.8); Monocytes % (Auto) 6 % (0-12); Neutrophils # (Auto) 6.0 Thou/mm3 (1.8-7.7); Neutrophils % (Auto) 75 % (37-80); Nucleated Red Blood Cell # 0.00 Thou/mm3 (0.00-0.00); Nucleated Red Blood Cell % 0 /100 WBC (0); Platelet Count 206 Thou/mm3 (140-440); RDW Standard Deviation 51.1 fL (36.4-46.3); Red Blood Count 3.38 Miln/mm3 (4.00-5.20); White Blood Count 8.0 Thou/mm3 (3.6-11.0)
[2025-02-27 11:45] LABS: Albumin, Serum 4.1 gm/dL (3.4-4.8); Anion Gap 10 (7-16); BUN/Creatinine Ratio 14 Ratio (12-20); Blood Urea Nitrogen 13 mg/dL (9-23); Calcium 9.2 mg/dL (8.3-10.6); Calcium (Corrected) 9.2 mg/dL (8.5-10.1); Carbon Dioxide 27.7 mMol/L (20.0-31.0); Chloride 108 mMol/L (98-107); Creatinine (Component) 0.9 mg/dL (0.6-1.3); Glucose 119 mg/dL (74-106); Osmolality,Calculated 291 (275-295); Phosphorous 3.0 mg/dL (2.4-5.1); Potassium 3.2 mMol/L (3.4-5.1); Sodium 146 mMol/L (136-145); eGFR > 60 See Note
[2025-02-27 11:52] LABS: Iron 84 mcg/dL (50-170); Percent Iron Saturation 39 % (20-55); Total Iron Binding Capacity 215 mcg/dL (250-425); Unsaturated Iron Binding 131 (225-295)
== END | disposition home or self-care (01) ==
LOC: COPL 10:08
PROVIDERS: PCP Family Medicine; Referring Provider Internal Medicine; Visit Provider Internal Medicine
DX: N17.0 Acute kidney failure with tubular necrosis (principal); N18.31 Chronic kidney disease, stage 3a; D63.1 Anemia in chronic kidney disease; I50.9 Heart failure, unspecified; I25.10 Atherosclerotic heart disease of native coronary artery without angina pectoris; E87.6 Hypokalemia; E55.9 Vitamin D deficiency, unspecified
CPT/HCPCS: 36415; 80069; 83540; 83550; 85025

== ENCOUNTER → 2025-03-22 | Outpatient (CLI) | payer MEDICARE, BC, MEDICAID, SELFPAY ==
[2025-03-22 10:23] LABS: Albumin, Serum 4.1 gm/dL (3.4-4.8); Anion Gap 11 (7-16); BUN/Creatinine Ratio 19 Ratio (12-20); Blood Urea Nitrogen 19 mg/dL (9-23); Calcium 8.8 mg/dL (8.3-10.6); Calcium (Corrected) 8.8 mg/dL (8.5-10.1); Carbon Dioxide 24.3 mMol/L (20.0-31.0); Chloride 110 mMol/L (98-107); Creatinine (Component) 1.0 mg/dL (0.6-1.3); Glucose 112 mg/dL (74-106); Magnesium 1.4 mg/dL (1.6-2.6); Osmolality,Calculated 291 (275-295); Phosphorous 3.2 mg/dL (2.4-5.1); Potassium 4.0 mMol/L (3.4-5.1); Sodium 145 mMol/L (136-145); eGFR 55 See Note
== END | disposition home or self-care (01) ==
LOC: COPL 09:01
PROVIDERS: PCP Family Medicine; Referring Provider Internal Medicine Cardiovascular Disease; Visit Provider Internal Medicine Cardiovascular Disease
DX: I50.22 Chronic systolic (congestive) heart failure (principal)
CPT/HCPCS: 36415; 80069; 83735

== ENCOUNTER → 2025-04-10 | Outpatient (CLI) | payer MEDICARE, BC, MEDICAID, SELFPAY ==
[2025-04-10 11:43] LABS: Albumin, Serum 4.1 gm/dL (3.4-4.8); Anion Gap 9 (7-16); BUN/Creatinine Ratio 19 Ratio (12-20); Blood Urea Nitrogen 15 mg/dL (9-23); Calcium 9.5 mg/dL (8.3-10.6); Calcium (Corrected) 9.5 mg/dL (8.5-10.1); Carbon Dioxide 26.0 mMol/L (20.0-31.0); Chloride 110 mMol/L (98-107); Creatinine (Component) 0.8 mg/dL (0.6-1.3); Glucose 106 mg/dL (74-106); Magnesium 1.4 mg/dL (1.6-2.6); Osmolality,Calculated 289 (275-295); Phosphorous 3.7 mg/dL (2.4-5.1); Potassium 4.2 mMol/L (3.4-5.1); Sodium 145 mMol/L (136-145); eGFR > 60 See Note
== END | disposition home or self-care (01) ==
LOC: COPL 10:29
PROVIDERS: PCP Family Medicine; Referring Provider Internal Medicine; Visit Provider Internal Medicine Cardiovascular Disease
DX: I50.22 Chronic systolic (congestive) heart failure (principal); N17.0 Acute kidney failure with tubular necrosis; N18.31 Chronic kidney disease, stage 3a; D63.1 Anemia in chronic kidney disease; I25.10 Atherosclerotic heart disease of native coronary artery without angina pectoris; E87.6 Hypokalemia; E55.9 Vitamin D deficiency, unspecified
CPT/HCPCS: 36415; 80069; 83735

== ENCOUNTER → 2025-04-25 | Outpatient (CLI) | payer MEDICARE, BC, MEDICAID, SELFPAY ==
[2025-04-25 11:39] LABS: Albumin, Serum 4.2 gm/dL (3.4-4.8); Anion Gap 10 (7-16); BUN/Creatinine Ratio 20 Ratio (12-20); Blood Urea Nitrogen 20 mg/dL (9-23); Calcium 8.9 mg/dL (8.3-10.6); Calcium (Corrected) 8.9 mg/dL (8.5-10.1); Carbon Dioxide 24.0 mMol/L (20.0-31.0); Chloride 111 mMol/L (98-107); Creatinine (Component) 1.0 mg/dL (0.6-1.3); Glucose 90 mg/dL (74-106); Magnesium 1.4 mg/dL (1.6-2.6); Osmolality,Calculated 291 (275-295); Phosphorous 3.9 mg/dL (2.4-5.1); Potassium 3.8 mMol/L (3.4-5.1); Sodium 145 mMol/L (136-145); eGFR 55 See Note
== END | disposition home or self-care (01) ==
LOC: COPL 10:07
PROVIDERS: PCP Family Medicine; Referring Provider Internal Medicine; Visit Provider Internal Medicine
DX: N17.0 Acute kidney failure with tubular necrosis (principal); N18.31 Chronic kidney disease, stage 3a; D63.1 Anemia in chronic kidney disease; I50.9 Heart failure, unspecified; I25.10 Atherosclerotic heart disease of native coronary artery without angina pectoris; E87.6 Hypokalemia; E55.9 Vitamin D deficiency, unspecified
CPT/HCPCS: 36415; 80069; 83735